=== PATIENT | female | born 1935 | race Caucasian/White ===

== ENCOUNTER 2022-07-26 12:13 | Emergency (ER) | payer MEDICARE, SELFPAY ==
--- NOTE | ~2022-07-26 | XR_ITS ---
EXAMINATION: XR ankle RT min 3V DATE: 07/26/2022 13:05 INDICATION: Right ankle injury. TECHNIQUE: 4 views of right ankle were obtained. COMPARISON: None. FINDINGS: There is an oblique fracture of medial malleolus in near-anatomic alignment. There is an ob lique fracture of distal fibula with medial aspect of the fracture line at the level of the tibial pl afond in near-anatomic alignment. There is heterotopic ossification distal to lateral malleolus. Ther e is an osteochondral lesion of lateral talar dome. There is mild midfoot osteoarthritis. There are e nthesophytes at the posterior and plantar aspects of calcaneal tuberosity. There is a wire were place d suture Achilles tendon. Ankle soft tissue swelling is noted. IMPRESSION: 1. Bimalleolar ankle fracture. 2. Polyarticular osteoarthritis. Reviewed, dictated and finalized at location A.
--- NOTE | 2022-07-26 12:25 | ED.LOWEXIN ---
HPI - Extremity Injury (Lower) General Chief Complaint: Extremity Injury, Lower Stated Complaint: Right Ankle Injury Source: patient, family and RN notes reviewed History of Present Illness HPI Narrative: 87-year-old male presents urgent care with at bedside. Patient is presenting with right lateral ankle pain, swelling, and bruising. Patient states last night she was sitting in her motorized scooter and did not realize it was on when it went forward hitting her ankle on the door frame. Patient denies any numbness, tingling, upper leg pain, chest pain, shortness of breath, or vomiting. Patient has taken Tylenol with minimal relief. Some parts of this dictation were generated by voice recognition software and may contain typographical and/or grammatical inaccuracies. Related Data Home Medications Medication Instructions Recorded Confirmed acetaminophen 500 mg tablet 500 mg PO Q6H PRN Pain 07/26/22 07/26/22 albuterol sulfate 90 mcg/actuation 2 puff inhalation QID PRN Cough 07/26/22 07/26/22 aerosol inhaler allopurinol 100 mg tablet 100 mg PO DAILY 07/26/22 07/26/22 apixaban 2.5 mg tablet (Eliquis) 2.5 mg PO BID 07/26/22 07/26/22 atorvastatin 10 mg tablet 10 mg PO DAILY 07/26/22 07/26/22 carvedilol 6.25 mg tablet 6.25 mg PO BID 07/26/22 07/26/22 clonazepam 1 mg tablet 1 mg PO DAILY 07/26/22 07/26/22 cranberry extract 200 mg capsule 200 mg PO DAILY 07/26/22 07/26/22 cyanocobalamin (vitamin B-12) 1,000 mcg PO DAILY 07/26/22 07/26/22 1,000 mcg tablet diclofenac sodium 1 % topical gel 2 g topical TID 07/26/22 07/26/22 duloxetine 20 mg capsule,delayed 20 mg PO BID 07/26/22 07/26/22 release famotidine 20 mg tablet 20 mg PO BID 07/26/22 07/26/22 fluticasone propionate 50 2 spray intranasal DAILY 07/26/22 07/26/22 mcg/actuation nasal spray,suspension furosemide 20 mg tablet 20 mg PO DAILY 07/26/22 07/26/22 ipratropium bromide 21 mcg (0.03 2 spray intranasal BID 07/26/22 07/26/22 %) nasal spray polyethylene glycol 3350 17 gram 17 g PO DAILY 07/26/22 07/26/22 oral powder packet Allergies Allergy/AdvReac Type Severity Reaction Status Date / Time latex Allergy Unknown Unknown Verified 07/26/22 12:45 adhesive AdvReac Intermediate Other Verified 07/26/22 12:44 oxycodone AdvReac Intermediate Nausea and Verified 07/26/22 12:45 Vomiting ramipril AdvReac Intermediate Other Verified 07/26/22 12:47 tetracycline AdvReac Intermediate Confusion Verified 07/26/22 12:43 Review of Systems Review of Systems: CONSTITUTIONAL: Denies fever, chills, or sweats. EYES: Denies visual changes, redness, or discharge. ENT: Denies otalgia and sore throat CARDIOVASCULAR: Denies chest pain, palpitations, or edema. RESPIRATORY: Denies cough or dyspnea. GASTROINTESTINAL: Denies abdominal pain, nausea, vomiting, or diarrhea. GENITOURINARY: Denies dysuria or hematuria. SKIN: Denies rash or itching. MUSCULOSKELETAL: Right lateral ankle pain NEUROLOGIC: Denies headache, numbness, or weakness. Pertinent positives per HPI. PMFSH Comments At the time of my signature, I reviewed and agree with the nursing past medical, surgical, social, and family history. There is no relevant family history pertinent to the patient complaint. Exam Narrative: GENERAL: This is a well-nourished, well-developed patient, in no apparent distress. HEAD: normocephalic, atraumatic. EYES:Sclera clear/white. Vision is grossly intact. EARS: External ears normal, auditory canals clear and without drainage. Hearing grossly intact. NOSE: External nose normal with no obvious nasal discharge, nares without redness, no rhinorrhea. THROAT: Mucous membranes moist, posterior pharynx clear. NECK: Neck supple, non-tender without lymphadenopathy, masses or thyromegaly. CARDIOVASCULAR: Regular rate RESPIRATORY: Clear to auscultation. Breath sounds equal bilaterally. No wheezes, rales, or rhonchi. GASTROINTESTINAL: Abdomen soft, non-tender, nondistended. Bowel sounds are act
[2022-07-26 12:28] VITALS: BP 140/64; PULSE 86; RESP 20; TEMP 37.1; O2SAT 100
== END 2022-07-26 14:10 | disposition short-term general hospital (02) ==
PROVIDERS: Emergency Provider Nurse Practitioner Family; PCP Internal Medicine Geriatric Medicine
DX: S82.841A Displaced bimalleolar fracture of right lower leg, initial encounter for closed fracture (principal); V00.832A Motorized mobility scooter colliding with stationary object, initial encounter; F03.90 Unspecified dementia, unspecified severity, without behavioral disturbance, psychotic disturbance, mood disturbance, and anxiety; M48.062 Spinal stenosis, lumbar region with neurogenic claudication; I48.91 Unspecified atrial fibrillation; E78.00 Pure hypercholesterolemia, unspecified; I10 Essential (primary) hypertension; K21.9 Gastro-esophageal reflux disease without esophagitis; M10.9 Gout, unspecified; E11.22 Type 2 diabetes mellitus with diabetic chronic kidney disease; I12.9 Hypertensive chronic kidney disease with stage 1 through stage 4 chronic kidney disease, or unspecified chronic kidney disease; N18.9 Chronic kidney disease, unspecified
CPT/HCPCS: 29515; 73610; 99214; G0463

== ENCOUNTER 2022-07-26 14:53 | Observation (INO) | payer MEDICARE, SELFPAY ==
[2022-07-26] VITALS (7 sets, daily range): BP systolic 121–175; BP diastolic 62–92; PULSE 84–99; RESP 16; TEMP 36.8–36.9; O2SAT 16–100
--- NOTE | ~2022-07-26 | US_ITS ---
EXAMINATION: US renal BI DATE: 07/28/2022 10:58 INDICATION: Acute on chronic kidney disease TECHNIQUE: Multiple ultrasound grayscale images of the kidneys were obtained. COMPARISON: None. FINDINGS: The right kidney measures 8.8 x 4.5 x 3.8 cm. The left kidney measures 9.3 x 4.0 x 3.8 cm. There is b ilateral increased renal cortical echogenicity which can be seen with medical renal disease. There is no hydronephrosis in either kidney. No stones identified. The bladder is incompletely distended and suboptimally visualized. IMPRESSION: 1. Bilateral increased renal cortical echogenicity which can be seen with chronic renal disease. No hydronephrosis. Reviewed, dictated and finalized at location A. IMPRESSION: 1. Bilateral increased renal cortical echogenicity which can be seen with investment strategist frances renal disease. No hydronephrosis.
--- NOTE | 2022-07-26 15:06 | ED.EXTPRO ---
HPI - Extremity Problem General Chief complaint: Extremity Problem,Nontraumatic <Nora Gomez PA-C - Last Filed: 07/26/22 17:19> Stated complaint: Tib/Fib FX <Nora Gomez PA-C - Last Filed: 07/26/22 17:19> Time Seen by Provider: 07/26/22 14:56 <Nora Gomez PA-C - Last Filed: 07/26/22 17:19> History of Present Illness HPI Narrative: 87-year-old female reports via EMS from urgent care for a bimalleolar fracture. Patient reports last night she was sitting in her motorized scooter and did not realize it was on, she went forward and hit her right ankle on the wall. She is complaining of inability to bear weight, right ankle pain and swelling and bruising. The urgent care provider spoke with Dr. Paulino who agreed to see the patient at [facility]. She lives at home in assisted living with her who is unable to care for her. Pt denies other complaints at this time. She normally ambulates with her scooter. <Nora Gomez PA-C - Last Filed: 07/26/22 17:19> Related Data Home medications: Home Medications Medication Instructions Recorded Confirmed acetaminophen 500 mg tablet 500 mg PO Q6H PRN Pain 07/26/22 07/29/22 albuterol sulfate 90 mcg/actuation 2 puff inhalation QID PRN Cough 07/26/22 07/29/22 aerosol inhaler allopurinol 100 mg tablet 100 mg PO DAILY 07/26/22 07/29/22 apixaban 2.5 mg tablet (Eliquis) 2.5 mg PO BID 07/26/22 07/29/22 atorvastatin 10 mg tablet 10 mg PO DAILY 07/26/22 07/29/22 carvedilol 6.25 mg tablet 6.25 mg PO BID 07/26/22 07/29/22 clonazepam 1 mg tablet 1 mg PO DAILY 07/26/22 07/29/22 cranberry extract 200 mg capsule 200 mg PO DAILY 07/26/22 07/29/22 cyanocobalamin (vitamin B-12) 1,000 mcg PO DAILY 07/26/22 07/29/22 1,000 mcg tablet diclofenac sodium 1 % topical gel 2 g topical TID 07/26/22 07/29/22 duloxetine 20 mg capsule,delayed 20 mg PO BID 07/26/22 07/29/22 release fluticasone propionate 50 2 spray intranasal DAILY 07/26/22 07/29/22 mcg/actuation nasal spray,suspension furosemide 20 mg tablet 20 mg PO DAILY 07/26/22 07/29/22 ipratropium bromide 21 mcg (0.03 2 spray intranasal BID 07/26/22 07/29/22 %) nasal spray <Nora Gomez PA-C - Last Filed: 07/26/22 17:19> Allergies/Adverse reactions: Allergies Allergy/AdvReac Type Severity Reaction Status Date / Time latex Allergy Unknown Unknown Verified 07/26/22 12:45 adhesive AdvReac Intermediate Other Verified 07/26/22 12:44 oxycodone AdvReac Intermediate Nausea and Verified 07/26/22 12:45 Vomiting ramipril AdvReac Intermediate Other Verified 07/26/22 12:47 tetracycline AdvReac Intermediate Confusion Verified 07/26/22 12:43 <Nora Gomez PA-C - Last Filed: 07/26/22 17:19> Review of Systems Review of Systems: CONSTITUTIONAL: Denies fever, chills EYES: Denies visual changes, redness, or discharge. ENT: Denies rhinorrhea, congestion, sore throat, or otalgia. CARDIOVASCULAR: Denies chest pain, palpitations, or edema. RESPIRATORY: Denies cough or dyspnea. GASTROINTESTINAL: Denies abdominal pain, nausea, vomiting, or diarrhea. GENITOURINARY: Denies dysuria or hematuria. SKIN: Denies rash or itching. MUSCULOSKELETAL: See HPI NEUROLOGIC: Denies headache, numbness, dizziness, or weakness. PSYCHIATRIC: Denies anxiety or depression. <Nora Gomez PA-C - Last Filed: 07/26/22 17:19> [facility] Past Medical History Medical History: Medical History Asthma Atrial fibrillation, chronic CKD (chronic kidney disease) CVA (cerebral vascular accident) x2 DM2 (diabetes mellitus, type 2) Gout Hyperlipidemia Hypertension Nondisplaced bimalleolar fracture of right ankle <Nora Gomez PA-C - Last Filed: 07/26/22 17:19> Surgical History Surgical History: Surgical History History of hysterectomy including cervix S/P extracapsular cataract extracti
[2022-07-26] MEDS: ACETAMINOPHEN 500 MG TABLET 1000 MG PO (17:13)
[2022-07-26 17:26] LABS: Basophils Percent Auto 0.4 % (0.2-1.2); Eosinophils Absolute Auto 0.1 K/mm3 (0-0.3); Eosinophils Percent Auto 0.9 % (0-4.4); Hematocrit 31.2 % (37.0-47.0); Hemoglobin 9.9 g/dL (12.0-15.0); Immature Granulocyte Absolute 0.02 K/mm3 (0.00-0.031); Immature Granulocyte Percent A 0.2 % (0-0.5); Lymphocytes Absolute Auto 1.79 K/mm3 (0.9-3.2); Lymphocytes Percent Auto 20.9 % (18.3-44.2); Mean Corpuscular HGB Conc 31.7 g/dl (32-36); Mean Corpuscular Hemoglobin 30.3 pg (26-34); Mean Corpuscular Volume 95.4 fl (80-100); Mean Platelet Volume 11.1 fl (7.4-10.4); Monocytes Absolute Auto 0.5 K/mm3 (0.1-0.6); Monocytes Percent Auto 5.5 % (2.6-8.5); Neutrophils Absolute Auto 6.2 K/mm3 (1.3-6.7); Neutrophils Percent Auto 72.1 % (45.5-73.1); Platelet Count Result 227 k/mm3 (150-375); Red Blood Count 3.27 M/mm3 (4.2-5.4); Red Cell Distribution Width 13.2 % (11.5-14.5); White Blood Count 8.6 K/mm3 (4.5-10.0)
[2022-07-26 17:41] LABS: Alanine Aminotransferase 12 U/L (6-35); Alkaline Phosphatase 114 U/L (38-126); Anion Gap 3 mmol/L (8-16); Aspartate Amino Transferase 19 U/L (14-36); Bilirubin,Total 0.9 mg/dL (0.2-1.3); Blood Urea Nitrogen 32 mg/dL (7-17); Calcium 10.4 mg/dL (8.4-10.2); Carbon Dioxide 32 mmol/L (22-30); Chloride 103 mmol/L (98-107); Estimated CRCL calculation 25 ml/min; Estimated Glomerular Filt Rate 43; Glucose 133 mg/dL (65-110); Sodium 138 mmol/L (137-145)
--- NOTE | 2022-07-26 19:38 | PM.IMHP ---
H&P: HPI History of Present Illness Date/Time: 07/26/22 19:38 Chief Complaint: Tib-fib fracture Narrative: This is an 87-year-old female patient who lives at home with her . The patient was brought here via EMS from urgent care for by malleolar fracture. The patient was sitting in her motorized scooter and did realize that was on she went forward hit her ankle on the wall. She was complaining about inability to bear weight. She was having some right ankle pain swelling and bruising. The urgent care provider spoke with Dr. Paulino who agreed to see the patient at [facility]. The patient stated that her would not be able to take care of her. The patient normally uses a scooter for mobility. When I assessed the patient she had a cast to the right lower extremity. H&H is 9.9 and 31.2. Her BUN is 32 and creatinine is 1.2. No previous labs for comparison. Her glucose is 133. Right ankle x-ray was read as by malleolar ankle fracture. Polyarticular osteoarthritis. The patient was given Tylenol in the emergency room. The patient is being admitted to observation status on the date of service of 07/26/2022. Review of Systems Review of Systems: All systems reviewed & are unremarkable except as noted in HPI and below Constitutional: Constitutional: Reports as per HPI and Reports no additional constitutional complaints Eyes: Eyes: Reports as per HPI and Reports no additional eye complaints ENT: Reports system reviewed and no additional complaints, except as documented and Reports Normal hearing present Cardiovascular: Cardiovascular: Reports no additional cardiovascular complaints Respiratory: Respiratory: Reports no additional respiratory complaints and Reports no additional respiratory complaints Gastrointestinal: Gastrointestinal: Reports as per HPI and Reports no additional gastrointestinal complaints Musculoskeletal: Musculoskeletal: Reports no additional musculoskeletal complaints Integumentary/Breasts: Skin/Breast: Reports system reviewed and no additional complaints, except as docu and Reports as per HPI Neurologic: Reports system reviewed and no additional complaints, except as documented, Reports as per HPI and Reports Normal hearing present Psychiatric: Psychiatric: Reports no additional psychiatric complaints and Reports as per HPI Endocrine: Endocrine: Reports no additional endocrine complaints Hematologic/Lymphatic: Hematologic/Lymphatic: Reports no additional hematologic/lymphatic complaints Allergic/Immunologic: Allergic/Immunologic: Reports no additional allergic/immunologic complaints [facility] Past Medical History Medical History (Updated 07/27/22 @ 00:08 by Heather Smith NP) Asthma Atrial fibrillation, chronic CKD (chronic kidney disease) CVA (cerebral vascular accident) x2 DM2 (diabetes mellitus, type 2) Gout Hyperlipidemia Hypertension Surgical History Surgical History History of hysterectomy including cervix S/P extracapsular cataract extraction Total knee replacement status right Family History Family History Mother Hypertension Daughter Breast cancer Social History Social History (Updated 07/27/22 @ 00:01 by Heather Smith NP) Social History: She lives with in an assisted living. She had one daughter that . She retired from [employer] in the [place] office. Code status full code Smoking status: Never smoker Lack of Transportation: No Lack of Food: Never True Current Housing: I Have Housing Concerned About Future Housing: No Difficulty Paying Gas/Electric Bills: No Difficulty Paying for Meds: No Currently Unemployed: No Education: Associate Degree Difficulty w/ Childcare or Family Care: No Spiritual care concerns: No Comments [place] Meds Home Medications and Allergies Home Medicat
--- NOTE | 2022-07-26 20:57 | ADMGEN ---
This patient, Leonie Casper, was admitted to [address] [place] [address] Room 305-02. Patient/family oriented to hospital policies and general routines including ID bracelet, bed and alarms, visiting hours, pain management, procedures, bathroom and other care routines, personal items, smoking policy, room service/diet, and visiting hours. Information on how to activate the Rapid Response Team has been discussed. Patient/Family are encouraged to report perceived risks to care and to ask questions if they do not understand what they are told or what they should do.
[2022-07-27] VITALS (7 sets, daily range): BP systolic 133–145; BP diastolic 52–54; PULSE 87–96; RESP 14–16; TEMP 35.9–36.8; O2SAT 96–98
[2022-07-27 06:35] LABS: Basophils Percent Auto 0.4 % (0.2-1.2); Eosinophils Absolute Auto 0.1 K/mm3 (0-0.3); Eosinophils Percent Auto 1.2 % (0-4.4); Hematocrit 28.3 % (37.0-47.0); Hemoglobin 8.8 g/dL (12.0-15.0); Immature Granulocyte Absolute 0.03 K/mm3 (0.00-0.031); Immature Granulocyte Percent A 0.4 % (0-0.5); Lymphocytes Absolute Auto 1.76 K/mm3 (0.9-3.2); Lymphocytes Percent Auto 24.3 % (18.3-44.2); Mean Corpuscular HGB Conc 31.1 g/dl (32-36); Mean Corpuscular Hemoglobin 30.4 pg (26-34); Mean Corpuscular Volume 97.9 fl (80-100); Monocytes Absolute Auto 0.6 K/mm3 (0.1-0.6); Monocytes Percent Auto 7.9 % (2.6-8.5); Neutrophils Absolute Auto 4.8 K/mm3 (1.3-6.7); Neutrophils Percent Auto 65.8 % (45.5-73.1); Platelet Count Result 210 k/mm3 (150-375); Red Blood Count 2.89 M/mm3 (4.2-5.4); Red Cell Distribution Width 13.3 % (11.5-14.5); White Blood Count 7.2 K/mm3 (4.5-10.0)
[2022-07-27 06:46] LABS: Lactic Acid Reflex 0.6 mmol/L (0.7-2.0)
[2022-07-27 06:47] LABS: Alanine Aminotransferase 11 U/L (6-35); Albumin Level 3.4 g/dL (3.5-5.1); Alkaline Phosphatase 98 U/L (38-126); Anion Gap 3 mmol/L (8-16); Aspartate Amino Transferase 17 U/L (14-36); Bilirubin,Total 0.7 mg/dL (0.2-1.3); Blood Urea Nitrogen 33 mg/dL (7-17); Calcium 9.4 mg/dL (8.4-10.2); Carbon Dioxide 33 mmol/L (22-30); Chloride 104 mmol/L (98-107); Estimated CRCL calculation 22 ml/min; Estimated Glomerular Filt Rate 36; Glucose 168 mg/dL (65-110); Magnesium 1.8 mg/dL (1.6-2.3); Sodium 140 mmol/L (137-145)
[2022-07-27 06:51] LABS: Hemoglobin A1C 6.2 % (<5.7)
--- NOTE | 2022-07-27 07:15 | PCOTNOTE ---
Will complete OT evaluation following ortho consult and WB restriction recommendations.
[2022-07-27 07:48] LABS: Glucose Point of Care 142 mg/dl (65-105)
[2022-07-27] MEDS: ATORVASTATIN 10 MG TABLET PO (09:26)
[2022-07-27] MEDS: CYANOCOBALAMIN 1,000 MCG TABLET 1000 MCG PO (09:26)
[2022-07-27] MEDS: allopurinoL 100 MG TABLET PO (09:26)
[2022-07-27] MEDS: DULoxetine HCL 20 MG CAPSULE.DR PO ×2 (09:26→17:29)
[2022-07-27] MEDS: APIXABAN 2.5 MG TABLET PO ×2 (09:26→17:28)
[2022-07-27] MEDS: FUROSEMIDE 20 MG TABLET PO (09:26)
[2022-07-27] MEDS: carvediloL 6.25 MG TABLET PO ×2 (09:29→20:40)
[2022-07-27] MEDS: FLUTICASONE PROPIONATE 0.05% NA SPR 16 GM BTL (*BKC) 2 SPRAY NASAL (09:30)
[2022-07-27] MEDS: DICLOFENAC SODIUM 1% 100 GM GEL (*BKC) 1 APPLIC TOPICAL ×3 (09:31→17:39)
[2022-07-27] MEDS: clonazePAM (*CRX) 0.5 MG TABLET 1 MG PO (09:35)
--- NOTE | 2022-07-27 09:44 | PM.CNOR ---
Assessment and Plan Assessment and plan (1) Nondisplaced bimalleolar fracture of right ankle: Code(s): S82.844A - Nondisplaced bimalleolar fracture of right lower leg, initial encounter for closed fracture Status: Acute Plan 87-year-old female who is essentially nonambulatory. She has a nondisplaced right bimalleolar ankle fracture. This can be treated with a stirrup splint which will allow her to wear a shoe and transfer. Would be good to assess her for possible rehab. I will need to see her in the office in one month for follow-up x-rays of the right ankle. History of Present Illness HPI Consult date: 07/27/22 Chief complaint: Bimalleolar Fracture Narrative: 87-year-old female who is essentially scooter bound. She ran her scooter into a wall yesterday suffering a bimalleolar right ankle fracture which is nondisplaced. She was splinted and admitted for possible placement and therapy. No other injuries with this occurrence. Review of Systems Constitutional: Constitutional: Denies anorexia Eyes: Eyes: Denies irritation and Denies loss of vision ENT: Reports Normal hearing present Cardiovascular: Cardiovascular: Denies chest pain and Denies dyspnea on exertion Respiratory: Respiratory: Denies cough and Denies dyspnea on exertion Gastrointestinal: Gastrointestinal: Denies abdominal pain and Denies bloating Genitourinary: Genitourinary: Denies dysuria Musculoskeletal: Musculoskeletal: Reports arthralgias ( Knee arthritis) Integumentary/Breasts: Skin/Breast: Denies skin ulcer Neurologic: Reports Normal hearing present and Denies loss of vision Hematologic/Lymphatic: Hematologic/Lymphatic: Denies easy bleeding PMF Past Medical History Medical History (Updated 07/27/22 @ 09:48 by Arian Paulino MD) Asthma Atrial fibrillation, chronic CKD (chronic kidney disease) CVA (cerebral vascular accident) x2 DM2 (diabetes mellitus, type 2) Gout Hyperlipidemia Hypertension Nondisplaced bimalleolar fracture of right ankle Surgical History Surgical History History of hysterectomy including cervix S/P extracapsular cataract extraction Total knee replacement status right Family History Family History Mother Hypertension Daughter Breast cancer Social History Social History Social History: She lives with in an assisted living. She had one daughter that . She retired from [employer] in the [employer] office. Code status full code Smoking status: Never smoker Lack of Transportation: No Lack of Food: Never True Current Housing: I Have Housing Concerned About Future Housing: No Difficulty Paying Gas/Electric Bills: No Difficulty Paying for Meds: No Currently Unemployed: No Education: Associate Degree Difficulty w/ Childcare or Family Care: No Spiritual care concerns: No Meds Home Medications and Allergies Home Medications Medication Instructions Recorded Confirmed Type acetaminophen 500 mg tablet 500 mg PO Q6H PRN Pain 07/26/22 07/26/22 History albuterol sulfate 90 mcg/actuation 2 puff inhalation QID PRN Cough 07/26/22 07/26/22 History aerosol inhaler allopurinol 100 mg tablet 100 mg PO DAILY 07/26/22 07/26/22 History apixaban 2.5 mg tablet (Eliquis) 2.5 mg PO BID 07/26/22 07/26/22 History atorvastatin 10 mg tablet 10 mg PO DAILY 07/26/22 07/26/22 History carvedilol 6.25 mg tablet 6.25 mg PO BID 07/26/22 07/26/22 History clonazepam 1 mg tablet 1 mg PO DAILY 07/26/22 07/26/22 History cranberry extract 200 mg capsule 200 mg PO DAILY 07/26/22 07/26/22 History cyanocobalamin (vitamin B-12) 1,000 mcg PO DAILY 07/26/22 07/26/22 History 1,000 mcg tablet diclofenac sodium 1 % topical gel 2 g topical TID 07/26/22 07/26/22 History duloxetine 20 mg capsule,delayed 20 mg PO B
[2022-07-27] MEDS: IPRATROPIUM NASAL SPRAY 0.03% 15 ML BOTTLE 2 SPRAY NASAL ×2 (10:00→17:31)
[2022-07-27 11:21] LABS: Glucose Point of Care 354 mg/dl (65-105)
--- NOTE | 2022-07-27 11:30 | P.PNIM_ITS ---
Progress Note: A&P Assessment and Plan (1) Bimalleolar ankle fracture: Qualifiers: Encounter type: initial encounter Fracture type: closed Laterality: right Qualified Code(s): S82.841A - Displaced bimalleolar fracture of right lower leg, initial encounter for closed fracture Code(s): S82.843A - Displaced bimalleolar fracture of unspecified lower leg, initial encounter for closed fracture Status: Deleted Assessment and Plan: * ankle x-ray shows bimalleolar ankle fracture * orthopedics consulted * ankle is currently casted * PT and OT ordered * weight-bearing as tolerated * Tylenol on board for pain * will need rehab currently working on [facility] (2) DM2 (diabetes mellitus, type 2): Code(s): E11.9 - Type 2 diabetes mellitus without complications Status: Acute Assessment and Plan: * current glucose 168 * A1c 6.2 * continue Accu-Cheks AC and HS * insulin sliding scale * appears to be diet controlled * continue trend glucose * adjust therapy as indicated (3) Atrial fibrillation, chronic: Code(s): I48.20 - Chronic atrial fibrillation, unspecified Status: Acute Assessment and Plan: * heart rate stable * Continue with Coreg and Eliquis. * Trend heart rate (4) Asthma: Code(s): J45.909 - Unspecified asthma, uncomplicated Status: Acute Assessment and Plan: * Continue with albuterol * chronic and stable (5) Hypertension: Code(s): I10 - Essential (primary) hypertension Status: Acute Assessment and Plan: * current blood pressure 145/54 * continue carvedilol 6.25 p.o. b.i.d., furosemide 20 mg p.o. daily * trend blood pressure * adjust therapy as indicated (6) CKD (chronic kidney disease): Code(s): N18.9 - Chronic kidney disease, unspecified Status: Acute Assessment and Plan: * current BUN and creatinine is 33/1.40 * could very well be an acute on chronic situation * baseline is unknown * start her on normal saline at 50 for really light hydration, x 1 bag * watch fluid status carefully as there could be a component of CHF * trend labs * urine labs ordered along with UA * adjust therapy as indicated * avoid nephrotoxic medications (7) Hyperlipidemia: Code(s): E78.5 - Hyperlipidemia, unspecified Status: Acute Assessment and Plan: * Continue with atorvastatin Plan patient does have a very strong urine odor could be more likely related to UTI awaiting UA collection at this time wheeled off on antibiotics until UA is collected Time Spent With Patient Time: 53 minutes Time with patient: Greater than 35 minutes Subjective Date/time seen: 07/27/22 11:30 Interval history: 07/27/22 1130 patient is lying in bed. Patient states that her foot hurts and rates it a 7/10. She currently denies any other chest pain, shortness a breath, nausea, vomiting, diarrhea constipation. Patient does have a pretty significant urinary leak. Awaiting for UA to be collected this time. Currently the plan is for the patient to go to [place] for rehab. 07/26/22? 19:38 This is an 87-year-old female patient who l
--- NOTE | 2022-07-27 11:30 | PM.IMPN ---
Progress Note: A&P Assessment and Plan (1) Bimalleolar ankle fracture: Qualifiers: Encounter type: initial encounter Fracture type: closed Laterality: right Qualified Code(s): S82.841A - Displaced bimalleolar fracture of right lower leg, initial encounter for closed fracture Code(s): S82.843A - Displaced bimalleolar fracture of unspecified lower leg, initial encounter for closed fracture Status: Deleted Assessment and Plan: ankle x-ray shows bimalleolar ankle fracture orthopedics consulted ankle is currently casted PT and OT ordered weight-bearing as tolerated Tylenol on board for pain will need rehab currently working on [employer] (2) DM2 (diabetes mellitus, type 2): Code(s): E11.9 - Type 2 diabetes mellitus without complications Status: Acute Assessment and Plan: current glucose 168 A1c 6.2 continue Accu-Cheks AC and HS insulin sliding scale appears to be diet controlled continue trend glucose adjust therapy as indicated (3) Atrial fibrillation, chronic: Code(s): I48.20 - Chronic atrial fibrillation, unspecified Status: Acute Assessment and Plan: heart rate stable Continue with Coreg and Eliquis. Trend heart rate (4) Asthma: Code(s): J45.909 - Unspecified asthma, uncomplicated Status: Acute Assessment and Plan: Continue with albuterol chronic and stable (5) Hypertension: Code(s): I10 - Essential (primary) hypertension Status: Acute Assessment and Plan: current blood pressure 145/54 continue carvedilol 6.25 p.o. b.i.d., furosemide 20 mg p.o. daily trend blood pressure adjust therapy as indicated (6) CKD (chronic kidney disease): Code(s): N18.9 - Chronic kidney disease, unspecified Status: Acute Assessment and Plan: current BUN and creatinine is 33/1.40 could very well be an acute on chronic situation baseline is unknown start her on normal saline at 50 for really light hydration, x 1 bag watch fluid status carefully as there could be a component of CHF trend labs urine labs ordered along with UA adjust therapy as indicated avoid nephrotoxic medications (7) Hyperlipidemia: Code(s): E78.5 - Hyperlipidemia, unspecified Status: Acute Assessment and Plan: Continue with atorvastatin Plan patient does have a very strong urine odor could be more likely related to UTI awaiting UA collection at this time wheeled off on antibiotics until UA is collected Time Spent With Patient Time: 53 minutes Time with patient: Greater than 35 minutes Subjective Date/time seen: 07/27/22 11:30 Interval history: 07/27/22 1130 patient is lying in bed. Patient states that her foot hurts and rates it a 7/10. She currently denies any other chest pain, shortness a breath, nausea, vomiting, diarrhea constipation. Patient does have a pretty significant urinary leak. Awaiting for UA to be collected this time. Currently the plan is for the patient to go to [place] for rehab. 07/26/22? 19:38 This is an 87-year-old female patient who lives at home with her .? The patient was brought here via EMS from urgent care for by malleolar fracture.? The patient was sitting in her motorized scooter and did realize that was on she went forward hit her ankle on the wall.? She was complaining about inability to bear weight.? She was having some right ankle pain swelling and bruising.? The urgent care provider spoke with Dr. Paulino who agreed to see the patient at [facility].? The patient stated that her would not be able to take care of her.? The patient normally uses a scooter for mobility.? When I assessed the patient she had a cast to the right lower extremity.? H&H is 9.9 and 31.2.? Her BUN is 32
[2022-07-27] MEDS: SODIUM CHLORIDE 0.9% IV 1,000 ML 50 ML IV CONT (13:10)
[2022-07-27 16:55] LABS: Glucose Point of Care 181 mg/dl (65-105)
[2022-07-27] MEDS: ACETAMINOPHEN 325 MG TABLET 650 MG PO (17:26)
[2022-07-27] MEDS: SILVERGEL (ELTA) 45 ML 1 APPLIC TOPICAL (17:30)
[2022-07-27 22:08] LABS: Glucose Point of Care 227 mg/dl (65-105)
[2022-07-28 05:59] LABS: Basophils Percent Auto 0.3 % (0.2-1.2); Eosinophils Absolute Auto 0.1 K/mm3 (0-0.3); Hematocrit 27.4 % (37.0-47.0); Hemoglobin 8.5 g/dL (12.0-15.0); Immature Granulocyte Absolute 0.02 K/mm3 (0.00-0.031); Immature Granulocyte Percent A 0.3 % (0-0.5); Lymphocytes Absolute Auto 2.06 K/mm3 (0.9-3.2); Lymphocytes Percent Auto 28.9 % (18.3-44.2); Mean Corpuscular Hemoglobin 30.1 pg (26-34); Mean Corpuscular Volume 97.2 fl (80-100); Mean Platelet Volume 10.8 fl (7.4-10.4); Monocytes Absolute Auto 0.6 K/mm3 (0.1-0.6); Monocytes Percent Auto 8.7 % (2.6-8.5); Neutrophils Absolute Auto 4.3 K/mm3 (1.3-6.7); Neutrophils Percent Auto 59.8 % (45.5-73.1); Platelet Count Result 204 k/mm3 (150-375); Red Blood Count 2.82 M/mm3 (4.2-5.4); Red Cell Distribution Width 13.1 % (11.5-14.5); White Blood Count 7.1 K/mm3 (4.5-10.0)
[2022-07-28 06:00] VITALS: BP 114/53; PULSE 85; RESP 20; TEMP 35.9; O2SAT 96
[2022-07-28 06:09] LABS: Alanine Aminotransferase 10 U/L (6-35); Albumin Level 3.3 g/dL (3.5-5.1); Alkaline Phosphatase 92 U/L (38-126); Anion Gap 4 mmol/L (8-16); Aspartate Amino Transferase 18 U/L (14-36); Bilirubin,Total 0.8 mg/dL (0.2-1.3); Blood Urea Nitrogen 32 mg/dL (7-17); Calcium 9.1 mg/dL (8.4-10.2); Carbon Dioxide 31 mmol/L (22-30); Chloride 101 mmol/L (98-107); Creatine Kinase 37 U/L (30-135); Estimated CRCL calculation 22 ml/min; Estimated Glomerular Filt Rate 36; Glucose 162 mg/dL (65-110); Magnesium 1.7 mg/dL (1.6-2.3); Sodium 136 mmol/L (137-145)
[2022-07-28 06:12] LABS: Iron 11 ug/dL (37-170)
[2022-07-28 06:17] LABS: Transferrin 152 mg/dL (206-381)
[2022-07-28 06:21] LABS: Percent Iron Saturation 5 % (20-50)
[2022-07-28 07:22] LABS: Folic Acid 14.9 ng/mL (2.76->20)
[2022-07-28 07:51] LABS: Glucose Point of Care 165 mg/dl (65-105)
[2022-07-28] MEDS: CYANOCOBALAMIN 1,000 MCG TABLET 1000 MCG PO (08:45)
[2022-07-28] MEDS: allopurinoL 100 MG TABLET PO (08:46)
[2022-07-28] MEDS: APIXABAN 2.5 MG TABLET PO ×2 (08:46→17:15)
[2022-07-28] MEDS: FUROSEMIDE 20 MG TABLET PO (08:46)
[2022-07-28] MEDS: DULoxetine HCL 20 MG CAPSULE.DR PO ×2 (08:46→17:15)
[2022-07-28] MEDS: ATORVASTATIN 10 MG TABLET PO (08:46)
[2022-07-28] MEDS: FLUTICASONE PROPIONATE 0.05% NA SPR 16 GM BTL (*BKC) 2 SPRAY NASAL (08:47)
[2022-07-28 08:49] VITALS: PULSE 83
[2022-07-28] MEDS: carvediloL 6.25 MG TABLET PO ×2 (08:49→21:06)
[2022-07-28] MEDS: clonazePAM (*CRX) 0.5 MG TABLET 1 MG PO (08:50)
[2022-07-28] MEDS: IPRATROPIUM NASAL SPRAY 0.03% 15 ML BOTTLE 2 SPRAY NASAL ×2 (08:51→17:16)
[2022-07-28] MEDS: DICLOFENAC SODIUM 1% 100 GM GEL (*BKC) 1 APPLIC TOPICAL ×3 (08:54→17:18)
[2022-07-28] MEDS: MAGNESIUM SULF 2 GM/WATER 50ML 2 GM/50 ML BAG IVPB (11:18)
[2022-07-28] MEDS: SILVERGEL (ELTA) 45 ML 1 APPLIC TOPICAL (11:19)
--- NOTE | 2022-07-28 11:41 | PM.PNORT ---
Progress Note: A&P Assessment and Plan (1) Nondisplaced bimalleolar fracture of right ankle: Qualifiers: Encounter type: subsequent encounter Fracture type: closed Fracture healing: with routine healing Qualified Code(s): S82.844D - Nondisplaced bimalleolar fracture of right lower leg, subsequent encounter for closed fracture with routine healing Code(s): S82.844A - Nondisplaced bimalleolar fracture of right lower leg, initial encounter for closed fracture Status: Acute Assessment and Plan: Plan follow-up in the office in one month for x-ray of the right ankle. Continue brace use full-time except for while bathing. Following. Subjective Subjective Date/Time Seen: 07/28/22 11:41 Interval history: 87-year-old female with essentially nondisplaced right bimalleolar ankle fracture. Has stirrup brace on and is tolerating it. Exam Narrative: Examination of the right ankle shows a well-fitting stirrup splint. Neurovascular status intact. Minimal swelling right ankle. Const: General: cooperative Objective Data Vital Signs Vital Signs: Vital Signs - 24 hr 07/27/22 14:00 07/27/22 14:27 07/27/22 17:26 Temperature 97.2 F L 98.2 F Pulse Rate 87 Respiratory Rate 16 Blood Pressure 133/54 L Pulse Oximetry 97 Oxygen Delivery Room Air 07/27/22 20:00 07/27/22 22:00 07/27/22 23:05 Temperature 96.6 F L Pulse Rate 87 90 89 Respiratory Rate 16 14 Blood Pressure 134/52 L Pulse Oximetry 97 96 96 Oxygen Delivery Room Air [employer] 07/28/22 06:00 07/28/22 07:55 07/28/22 08:49 Temperature 96.7 F L Pulse Rate 85 83 Respiratory Rate 20 Blood Pressure 114/53 L Pulse Oximetry 96 Oxygen Delivery Room Air 07/28/22 09:00 Temperature Pulse Rate Respiratory Rate Blood Pressure Pulse Oximetry Oxygen Delivery Room Air Intake/Output Intake/Output: Intake & Output 07/25/22 07/26/22 07/27/22 07/28/22 23:59 23:59 23:59 23:59 Intake Total 1734 / 1734 170 / 170 Output Total 300 / 300 Balance 1734 / 1734 -130 / -130 Meds/Results Medications: Active Medications Generic Name Dose Route Start Last Admin Trade Name Freq PRN Reason Stop Dose Admin Acetaminophen 650 mg 07/26/22 16:42 07/27/22 17:26 Acetaminophen 325 Mg Tablet PO 650 mg Q4H PRN Administration Mild Pain (1-3) or Fever Albuterol 2 puff 07/26/22 23:55 Albuterol Sulfate (*Sp) Aerosol 1 Puff INHALATION QID PRN Shortness Of Breath Allopurinol 100 mg 07/27/22 09:00 07/28/22 08:46 Allopurinol 100 Mg Tablet PO 100 mg DAILY CARMENCITA Administration Apixaban 2.5 mg 07/27/22 09:00 07/28/22 08:46 Apixaban 2.5 Mg Tablet PO 2.5 mg BID CARMENCITA Administration Atorvastatin Calcium 10 mg 07/27/22 09:00 07/28/22 08:46 Atorvastatin 10 Mg Tablet PO 10 mg DAILY CARMENCITA Administration Carvedilol 6.25 mg 07/27/22 09:00 07/28/22 08:49 Carvedilol 6.25 Mg Tablet PO 6.25 mg Q12HR CARMENCITA Administration Clonazepam 1 mg 07/27/22 09:00 07/28/22 08:50 Clonazepam (*Crx) 0.5 Mg Tablet PO 1 mg DAILY CARMENCITA Administration Cyanocobalamin 1,000 mcg 07/27/22 09:00 07/28/22 08:45 Cyanocobalamin 1,000 Mcg Tablet PO 1,000 mcg DAILY CARMENCITA Administration Dextrose 12.5 gm 07/27/22 00:05 Dextrose 50% 25 Gm/50 Ml Syringe IV PUSH PRN PRN Hypoglycemia Protocol Diclofenac Sodium 1 applic 07/27/22 09:00 07/28/22 08:54 Diclofenac Sodium 1% 100 Gm Gel (*Bkc) TOPICAL 1 applic TID CARMENCITA Administration Duloxetine HCl 20 mg 07/27/22 09:00 07/28/22 08:46 Duloxetine Hcl 20 Mg Capsule.Dr PO 20 mg BID CARMENCITA Administration Fluticasone Propionate 2 spray 07/27/22 09:00 07/28/22 08:47 Fluticasone Propionate 0.05% Na Spr 16 Gm Btl (*Bkc) NASAL 2 spray DAILY CARMENCITA Administration Furosemide 20 mg 07/27/22 09:00 07/28/22 08:46 Furosemide 20 Mg Tablet PO 20 mg DAILY CARMENCITA Administration Glucagon
[2022-07-28 12:24] LABS: Glucose Point of Care 301 mg/dl (65-105)
[2022-07-28 12:52] LABS: Creatinine Urine 44.2 mg/dL; Urea Random Urine 280 MG/DL
[2022-07-28 12:58] LABS: Sodium Urine Random 115 meq/L
[2022-07-28] MEDS: INSULIN ASPART (*BKC) 100 UNITS/ML SUB-Q (12:59)
[2022-07-28 13:13] LABS: Appearance Urine Cloudy (Clear); Bacteria Urine 4+ /hpf; Bilirubin Urine Negative (Negative); Blood Urine Negative (Negative); Color Urine Yellow (Yellow); Glucose Urine UA Trace mg/dL (Negative); Hyaline Casts Urine Present /lpf; Ketones Urine Negative (Negative); Leukocyte Esterase Ur 2+ LEU/UL (Negative); Nitrate Urine Positive (Negative); Protein Urine Negative (Negative); Squamous Epithelial Cell Urine None seen /hpf (Few); Urobilinogen Urine 0.2 mg/dL (<2.0); WBC Urine 21-50 /hpf
[2022-07-28 13:15] LABS: Add Urine Microscopic? YES
[2022-07-28 14:00] VITALS: BP 127/50; PULSE 89; RESP 16; TEMP 36.1; O2SAT 96
--- NOTE | 2022-07-28 14:52 | PM.IMPN ---
Progress Note: A&P Assessment and Plan (1) Bimalleolar ankle fracture: Qualifiers: Encounter type: initial encounter Fracture type: closed Laterality: right Qualified Code(s): S82.841A - Displaced bimalleolar fracture of right lower leg, initial encounter for closed fracture Code(s): S82.843A - Displaced bimalleolar fracture of unspecified lower leg, initial encounter for closed fracture Status: Deleted Assessment and Plan: Patient hit her right ankle against the wall in her motor scooter. Right ankle x-ray revealed bimalleolar ankle fracture Appreciate orthopedic surgery recommendations Conservative management with stirrup splint Will likely need rehab placement Outpatient Orthopedic fo Follow-up for repeat imaging in 1 month Appreciate PT/OT evals Continue supportive care (2) DM2 (diabetes mellitus, type 2): Code(s): E11.9 - Type 2 diabetes mellitus without complications Status: Acute Assessment and Plan: A1c is 6.2 Blood sugars remain reasonably controlled Continue Accu-Cheks, sliding scale insulin, and hypoglycemic protocol Monitor glucose trends (3) Atrial fibrillation, chronic: Code(s): I48.20 - Chronic atrial fibrillation, unspecified Status: Acute Assessment and Plan: Rate is controlled Continue home carvedilol and Eliquis (4) Hypertension: Code(s): I10 - Essential (primary) hypertension Status: Acute Assessment and Plan: Blood pressure is stable. Last BP 127/50 Continue home carvedilol 6.25 mg b.i.d. Monitor BP trends (5) CKD (chronic kidney disease): Code(s): N18.9 - Chronic kidney disease, unspecified Status: Acute Assessment and Plan: No prior labs available to establish baseline Creatinine is 1.4 at this time Renal ultrasound showed bilateral increased renal cortical echogenicity which is seen with chronic renal disease. No evidence of hydronephrosis Suspect patient is at her baseline. Monitor labs (6) Abnormal urinalysis: Code(s): R82.90 - Unspecified abnormal findings in urine Status: Acute Assessment and Plan: UA is abnormal with positive nitrates, 2+ leuk esterase, 21-50 WBC and 4+ bacteria Patient denies urinary symptoms at this time, is afebrile, no leukocytosis Will hold off on antibiotics while awaiting culture results Plan Magnesium has been supplemented Subjective Date/time seen: 04/26/23 14:52 Interval history: Date of service: 07/28/2022 Leonie Casper is an 87-year-old female with a history of atrial fibrillation on chronic anticoagulation, CKD, CVA, type 2 diabetes mellitus, hypertension who is seen in follow-up for left ankle fracture. She endorses 7/10 right ankle pain as well as pain with weight-bearing. She was able to get up with therapy today. She states that she hurts alll over. She denies shortness of breath, cough, or chest pain. Reports having a bowel movement today. She denies dysuria or hematuria. She is incontinent of urine. Review of Systems Review of Systems: All systems reviewed & are unremarkable except as noted in HPI and below Exam Narrative: General: Thin, chronically ill-appearing 87-year-old female, sitting up in bed, comfortable, NARD Neuro: awake, alert and oriented x4, speech clear, no focal neuro deficits noted HEENMT: normocephalic, atraumatic, EOMI, sclerae anicteric, hard of hearing Respiratory: clear to auscultation bilaterally, nonlabored breathing Cardio: regular rate, regular rhythm with S1-S2 Abdomen: nondistended, normoactive bowel sounds, soft, nontender to palpation Extremities: Right ankle elevated, bilateral lower extremities without edema, erythema, or tenderness to palpation, able to wiggle toes bilaterally Skin: no rashes or lesions, warm and dry Psych: appropriate mood and affect, judgment and insight intact Objective Data Vital Signs Vital Si
[2022-07-28 16:55] LABS: Glucose Point of Care 111 mg/dl (65-105)
[2022-07-28 20:00] VITALS: PULSE 89; RESP 16; O2SAT 96
[2022-07-28 22:00] VITALS: BP 138/64; PULSE 89; RESP 20; TEMP 36.3; O2SAT 98
[2022-07-28 22:57] LABS: Glucose Point of Care 182 mg/dl (65-105)
[2022-07-29 06:00] VITALS: BP 137/65; PULSE 88; RESP 17; TEMP 35.9; O2SAT 93
[2022-07-29 06:16] LABS: Hematocrit 28.1 % (37.0-47.0); Mean Corpuscular Hemoglobin 30.9 pg (26-34); Mean Corpuscular Volume 96.6 fl (80-100); Mean Platelet Volume 11.1 fl (7.4-10.4); Platelet Count Result 238 k/mm3 (150-375); Red Blood Count 2.91 M/mm3 (4.2-5.4); Red Cell Distribution Width 12.9 % (11.5-14.5); White Blood Count 7.7 K/mm3 (4.5-10.0)
[2022-07-29 06:30] LABS: Anion Gap 5 mmol/L (8-16); Blood Urea Nitrogen 33 mg/dL (7-17); Calcium 9.4 mg/dL (8.4-10.2); Carbon Dioxide 29 mmol/L (22-30); Chloride 101 mmol/L (98-107); Estimated CRCL calculation 20 ml/min; Estimated Glomerular Filt Rate 33; Glucose 158 mg/dL (65-110); Magnesium 1.8 mg/dL (1.6-2.3); Potassium 4.2 mmol/L (3.4-5.0); Sodium 135 mmol/L (137-145)
[2022-07-29 07:41] LABS: Glucose Point of Care 149 mg/dl (65-105)
[2022-07-29] MEDS: clonazePAM (*CRX) 0.5 MG TABLET 1 MG PO (08:06)
[2022-07-29] MEDS: allopurinoL 100 MG TABLET PO (08:07)
[2022-07-29] MEDS: APIXABAN 2.5 MG TABLET PO (08:07)
[2022-07-29] MEDS: ATORVASTATIN 10 MG TABLET PO (08:07)
[2022-07-29] MEDS: CYANOCOBALAMIN 1,000 MCG TABLET 1000 MCG PO (08:07)
[2022-07-29 08:08] VITALS: PULSE 91
[2022-07-29] MEDS: carvediloL 6.25 MG TABLET PO (08:08)
[2022-07-29] MEDS: DULoxetine HCL 20 MG CAPSULE.DR PO (08:08)
[2022-07-29] MEDS: FUROSEMIDE 20 MG TABLET PO (08:08)
[2022-07-29] MEDS: IPRATROPIUM NASAL SPRAY 0.03% 15 ML BOTTLE 2 SPRAY NASAL (08:09)
[2022-07-29] MEDS: FLUTICASONE PROPIONATE 0.05% NA SPR 16 GM BTL (*BKC) 2 SPRAY NASAL (08:09)
[2022-07-29] MEDS: DICLOFENAC SODIUM 1% 100 GM GEL (*BKC) 1 APPLIC TOPICAL (08:11)
[2022-07-29] MEDS: SILVERGEL (ELTA) 45 ML 1 APPLIC TOPICAL (10:10)
[2022-07-29 11:12] LABS: Glucose Point of Care 251 mg/dl (65-105)
[2022-07-29 11:33] LABS: Glucose Point of Care 259 mg/dl (65-105)
[2022-07-29] MEDS: INSULIN ASPART (*BKC) 100 UNITS/ML SUB-Q (12:32)
--- NOTE | 2022-07-29 13:38 | PM.DS ---
DS: Admitting Diagnosis Discharge Date 07/29/2022 Admitting Diagnosis Right ankle fracture DS: Discharge Diagnosis Discharge Diagnosis (1) Bimalleolar ankle fracture: Qualifiers: Encounter type: initial encounter Fracture type: closed Laterality: right Qualified Code(s): S82.841A - Displaced bimalleolar fracture of right lower leg, initial encounter for closed fracture Code(s): S82.843A - Displaced bimalleolar fracture of unspecified lower leg, initial encounter for closed fracture Status: Deleted Assessment and Plan: Patient hit her right ankle against the wall in her motor scooter. Right ankle x-ray revealed bimalleolar ankle fracture Appreciate orthopedic surgery recommendations Conservative management with stirrup splint Outpatient Orthopedic follow-up for repeat imaging in 1 month Continue therapy at [facility] Continue supportive care (2) DM2 (diabetes mellitus, type 2): Code(s): E11.9 - Type 2 diabetes mellitus without complications Status: Acute Assessment and Plan: A1c is 6.2 Blood sugars remained controlled Managed with accu-Cheks, sliding scale insulin, and hypoglycemic protocol (3) Atrial fibrillation, chronic: Code(s): I48.20 - Chronic atrial fibrillation, unspecified Status: Acute Assessment and Plan: Rate is controlled Continue home carvedilol and Eliquis (4) Hypertension: Code(s): I10 - Essential (primary) hypertension Status: Acute Assessment and Plan: Blood pressure stable. Continue home carvedilol 6.25 mg b.i.d. (5) CKD (chronic kidney disease): Code(s): N18.9 - Chronic kidney disease, unspecified Status: Acute Assessment and Plan: No prior labs available to establish baseline Renal ultrasound showed bilateral increased renal cortical echogenicity which is seen with chronic renal disease. No evidence of hydronephrosis Suspect patient is at her baseline. Outpatient follow-up with PCP for continued monitoring of renal function (6) UTI (urinary tract infection): Code(s): N39.0 - Urinary tract infection, site not specified Status: Acute Assessment and Plan: UA is abnormal with positive nitrates, 2+ leuk esterase, 21-50 WBC and 4+ bacteria Urine culture with growth of E coli Begin cefdinir 300 mg b.i.d. for 7 days DS: Summary Hospital Course Hospital Course: Date of admission: 07/26/2022 Date of discharge: 07/29/2022 Leonie Casper is an 87-year-old female with a history of atrial fibrillation on chronic anticoagulation, CKD, CVA, type 2 diabetes mellitus, and hypertension who presented to the emergency department on 07/26/2022 with complaints of right ankle pain after hitting her ankle against the wall in her motor scooter. On presentation to the ED, her vital signs were stable, she was afebrile, right ankle x-ray showed evidence of bimalleolar ankle fracture. She was admitted to the hospitalist service for further evaluation management was seen in consultation by Orthopedic surgery. Please see above for further details. Conservative management provided and patient will follow-up with Orthopedic surgery as an outpatient. Started on antibiotics for UTI which patient will continue as an outpatient. Patient was arranged to continue therapy as stone swing bed was discharged in hemodynamically stable condition on 07/29/2022. Time Spent with Patient Time attestation: Total time spent providing and/or coordinating discharge services: 45 minutes Time spent: Greater than 30 minutes Exam Narrative: General: Thin, chronically ill-appearing 87-year-old female, sitting up in a chair comfortable, NARD Neuro: awake, alert and oriented x4, speech clear, no focal neuro deficits noted HEENMT: normocephalic, atraumatic, EOMI, sclerae anicteric, hard of hearing Respiratory: clear to auscultation bilaterally, nonlabored breathing Ca
[2022-07-29 14:00] VITALS: BP 144/57; PULSE 94; RESP 20; TEMP 36.6; O2SAT 100
[2022-07-29 16:33] LABS: Glucose Point of Care 158 mg/dl (65-105)
[2022-07-31 21:24] LABS: Osmolality, Urine 401 mOsm/kg (50-1200)
== END 2022-07-29 18:12 | disposition home or self-care (01) ==
LOC: ANHED 16:42 → ANH3MEDSUR 19:52
PROVIDERS: Nurse Practitioner; Admitting Provider Chiropractor; Emergency Provider Physician Assistant; PCP Internal Medicine Geriatric Medicine; Visit Provider Physician Assistant
DX: S82.841A Displaced bimalleolar fracture of right lower leg, initial encounter for closed fracture (principal); X58.XXXA Exposure to other specified factors, initial encounter; E11.22 Type 2 diabetes mellitus with diabetic chronic kidney disease; I12.9 Hypertensive chronic kidney disease with stage 1 through stage 4 chronic kidney disease, or unspecified chronic kidney disease; N18.9 Chronic kidney disease, unspecified; I48.20 Chronic atrial fibrillation, unspecified; J45.909 Unspecified asthma, uncomplicated; N39.0 Urinary tract infection, site not specified; B96.20 Unspecified Escherichia coli [E. coli] as the cause of diseases classified elsewhere; M10.9 Gout, unspecified; M15.9 Polyosteoarthritis, unspecified; D64.9 Anemia, unspecified; R79.89 Other specified abnormal findings of blood chemistry; E78.5 Hyperlipidemia, unspecified; E11.65 Type 2 diabetes mellitus with hyperglycemia; Z86.73 Personal history of transient ischemic attack (TIA), and cerebral infarction without residual deficits; Z79.1 Long term (current) use of non-steroidal anti-inflammatories (NSAID); Z79.51 Long term (current) use of inhaled steroids; Z79.01 Long term (current) use of anticoagulants; Z79.899 Other long term (current) drug therapy; Z82.49 Family history of ischemic heart disease and other diseases of the circulatory system
CPT/HCPCS: 36415; 73610; 76775; 80048; 80053; 81001; 82550; 82570; 82607; 82728; 82746; 82948; 83036; 83540; 83550; 83605; 83735; 83935; 84300; 84443; 84466; 84540; 85025; 85027; 87077; 87086; 87186; 96374; 97110; 97161; 97165; 97530; 99214; 99285; A9270; G0378; G0463; J1815; J3475; J7030

== ENCOUNTER 2022-07-29 18:50 | Inpatient (IN) | payer MEDICARE, SELFPAY ==
[2022-07-29 18:50] VITALS: BP 108/55; PULSE 95; RESP 15; TEMP 37.2; O2SAT 94
[2022-07-29 19:17] VITALS: BMI 32.8
--- NOTE | 2022-07-29 19:27 | ADMGEN ---
This patient, Leonie Casper, was admitted to 2nd Floor Room 205-1. Patient/family oriented to hospital policies and general routines including ID bracelet, bed and alarms, visiting hours, pain management, procedures, bathroom and other care routines, personal items, smoking policy, room service/diet, and visiting hours. Information on how to activate the Rapid Response Team has been discussed. Patient are encouraged to report perceived risks to care and to ask questions if they do not understand what they are told or what they should do.
[2022-07-29] MEDS: CEFDINIR 300 MG CAPSULE PO (20:03)
[2022-07-29 21:02] LABS: Glucose Point of Care 167 mg/dl (65-105)
[2022-07-29] MEDS: traZODone HCL 50 MG TABLET PO (21:22)
[2022-07-29] MEDS: ACETAMINOPHEN 500 MG TABLET PO (21:22)
[2022-07-29 23:01] VITALS: BP 131/55; PULSE 90; RESP 14; TEMP 37.2; O2SAT 95
--- NOTE | 2022-07-30 04:32 | PC.NURSE ---
Pt awoken so the nursing staff could check to see if the pt had been incontinent of urine. Pt was incontinent of a couple voids, so this RN along w/assistance provided by Opal Diaz RN changed the pt's soiled depend, gown, and some bed linens. [place]-area cleansed w/hygiene wipes prior to applying a dry depend. Pt tolerated turning very well and assisted w/turning. Call light w/in reach, side railsx3, bed in lowest position, night light and bed alarm on for pt safety.
[2022-07-30 08:00] VITALS: BP 116/51; PULSE 93; RESP 18; TEMP 36.9; O2SAT 95
[2022-07-30 08:06] LABS: Glucose Point of Care 165 mg/dl (65-105)
--- NOTE | 2022-07-30 09:27 | PM.IMHP ---
H&P: HPI History of Present Illness Date/Time: 07/30/22 09:27 Chief Complaint: Swing, wEAKNESS, FRACTURE ANKLE Narrative: This is a 87-year-old female that presents from [facility]. Patient was there and being treated for fractured ankle she was in a motorized wheelchair and ran into the wall and fractured her ankle that does not need surgically repaired. Patient is here for physical therapy which she is going to be able to stand pivot into her wheelchair so that she can return home and help care for her own self. Patient has a past medical history of diabetes, atrial fibrillation, anxiety, chronic kidney disease, hyperlipidemia. Patient currently is being treated for a urinary tract infection she is on cefdinir she received medication until 5 4 physical therapy will see her today. We will encourage fluids and continue to monitor for any worsening signs and symptoms of this urinary tract infection. We will wait to see or ensure that the culture states that this medication will help patient patient is eating and drinking without any difficulty no nausea vomiting and/or diarrhea. Review of Systems Review of Systems: CONSTITUTIONAL: Denies fever, chills, or sweats. EYES: Denies visual changes, redness, or discharge. ENT: Denies rhinorrhea, congestion, sore throat, or otalgia. CARDIOVASCULAR:Denies chest pain, palpitations, or edema. RESPIRATORY: positive cough or dyspnea. GASTROINTESTINAL: Denies abdominal pain, nausea, vomiting, or diarrhea. GENITOURINARY: Denies dysuria or hematuria. SKIN:[Denies rash or itching. MUSCULOSKELETAL:Denies back pain, positive joint pain, or myalgia. NEUROLOGIC: Denies headache, numbness, or Positive weakness. PSYCHIATRIC:Denies anxiety or depression [facility] Past Medical History Medical History Asthma Atrial fibrillation, chronic CKD (chronic kidney disease) CVA (cerebral vascular accident) x2 DM2 (diabetes mellitus, type 2) Gout Hyperlipidemia Hypertension Nondisplaced bimalleolar fracture of right ankle Surgical History Surgical History History of hysterectomy including cervix S/P extracapsular cataract extraction Total knee replacement status right Family History Family History Mother Hypertension Daughter Breast cancer Social History Social History Social History: She lives with in an assisted living. She had one daughter that . She retired from [employer] in the [employer] office. Code status full code Smoking status: Never smoker Alcohol intake: never Substance use type: prescription drug Lack of Transportation: No Lack of Food: Never True Current Housing: I Have Housing Concerned About Future Housing: No Difficulty Paying Gas/Electric Bills: No Difficulty Paying for Meds: No Currently Unemployed: No Education: Trade/Vocational Certificate Difficulty w/ Childcare or Family Care: No Spiritual care concerns: Yes ([employer]) Comments At time as signature, I have reviewed and agree with nursing past medical, social, surgical and family history. Please see nursing chart for further information. There is no relevant family history pertinent to the presenting complaint. Meds Home Medications and Allergies Home Medications Medication Instructions Recorded Confirmed Type acetaminophen 500 mg tablet 500 mg PO Q6H PRN Pain 07/26/22 07/29/22 History albuterol sulfate 90 mcg/actuation 2 puff inhalation QID PRN Cough 07/26/22 07/29/22 History aerosol inhaler allopurinol 100 mg tablet 100 mg PO DAILY 07/26/22 07/29/22 History apixaban 2.5 mg tablet (Eliquis) 2.5 mg PO BID 07/26/22 07/29/22 History atorvastatin 10 mg tablet 10 mg PO DAILY 07/26/22 07/29/22 History carvedilol
[2022-07-30] MEDS: FLUTICASONE PROPIONATE 0.05% NA SPR 16 GM BTL (*BKC) 2 SPRAY NASAL (09:47)
[2022-07-30] MEDS: APIXABAN 2.5 MG TABLET PO ×2 (09:48→20:48)
[2022-07-30] MEDS: clonazePAM (*CRX) 0.5 MG TABLET 1 MG PO (09:48)
[2022-07-30] MEDS: CYANOCOBALAMIN 1,000 MCG TABLET 1000 MCG PO (09:48)
[2022-07-30] MEDS: CEFDINIR 300 MG CAPSULE PO ×2 (09:48→20:08)
[2022-07-30] MEDS: ACETAMINOPHEN 500 MG TABLET PO ×2 (09:48→21:01)
[2022-07-30] MEDS: IPRATROPIUM NASAL SPRAY 0.03% 15 ML BOTTLE 2 SPRAY NASAL ×2 (09:48→17:52)
[2022-07-30] MEDS: DULoxetine HCL 20 MG CAPSULE.DR PO ×2 (09:48→17:52)
[2022-07-30] MEDS: DICLOFENAC SODIUM 1% 100 GM GEL (*BKC) 1 APPLIC TOPICAL (09:48)
[2022-07-30] MEDS: ATORVASTATIN 10 MG TABLET PO (09:48)
[2022-07-30] MEDS: FUROSEMIDE 20 MG TABLET PO (09:48)
[2022-07-30] MEDS: allopurinoL 100 MG TABLET PO (09:48)
[2022-07-30 09:56] VITALS: PULSE 93
[2022-07-30] MEDS: carvediloL 6.25 MG TABLET PO ×2 (09:56→20:46)
[2022-07-30 16:00] VITALS: BP 116/53; PULSE 82; RESP 16; TEMP 36.4; O2SAT 95
[2022-07-30 20:45] LABS: Glucose Point of Care 257 mg/dl (65-105)
[2022-07-30 20:46] VITALS: PULSE 91
[2022-07-30] MEDS: traZODone HCL 50 MG TABLET PO (21:01)
[2022-07-30] MEDS: ALBUTEROL SULFATE (*SP) INHALER 2 PUFF INHALATION (21:01)
[2022-07-30 23:53] VITALS: BP 127/73; PULSE 90; RESP 20; TEMP 36.2; O2SAT 99
[2022-07-31 07:56] VITALS: BP 120/60; PULSE 103; RESP 16; TEMP 36.8; O2SAT 90
[2022-07-31 08:01] LABS: Glucose Point of Care 167 mg/dl (65-105)
--- NOTE | 2022-07-31 08:17 | PM.EVENT ---
Event Note Event Note Event Note: Cefdinir will cover E coli that patient is already on . Patient is complaining of a cough and it is bothering her . I order cough medicine for her he has remained afebrile.
[2022-07-31] MEDS: ALBUTEROL SULFATE (*SP) INHALER 2 PUFF INHALATION (08:20)
[2022-07-31] MEDS: allopurinoL 100 MG TABLET PO (08:23)
[2022-07-31] MEDS: ACETAMINOPHEN 500 MG TABLET PO ×2 (08:24→16:22)
[2022-07-31 08:26] VITALS: PULSE 103
[2022-07-31] MEDS: carvediloL 6.25 MG TABLET PO ×2 (08:26→21:01)
[2022-07-31] MEDS: DULoxetine HCL 20 MG CAPSULE.DR PO ×2 (08:26→16:23)
[2022-07-31] MEDS: APIXABAN 2.5 MG TABLET PO ×2 (08:26→21:01)
[2022-07-31] MEDS: ATORVASTATIN 10 MG TABLET PO (08:27)
[2022-07-31] MEDS: FUROSEMIDE 20 MG TABLET PO (08:27)
[2022-07-31] MEDS: DICLOFENAC SODIUM 1% 100 GM GEL (*BKC) 1 APPLIC TOPICAL ×2 (08:27→16:23)
[2022-07-31] MEDS: CYANOCOBALAMIN 1,000 MCG TABLET 1000 MCG PO (08:27)
[2022-07-31] MEDS: CEFDINIR 300 MG CAPSULE PO ×2 (08:27→19:51)
[2022-07-31] MEDS: IPRATROPIUM NASAL SPRAY 0.03% 15 ML BOTTLE 2 SPRAY NASAL ×2 (08:28→16:28)
[2022-07-31] MEDS: FLUTICASONE PROPIONATE 0.05% NA SPR 16 GM BTL (*BKC) 2 SPRAY NASAL (08:28)
[2022-07-31] MEDS: clonazePAM (*CRX) 0.5 MG TABLET 1 MG PO (09:00)
[2022-07-31] MEDS: guaiFENesin/DEXTROMETHORPHAN 5 ML UDC PO (09:17)
[2022-07-31 16:00] VITALS: BP 136/63; PULSE 85; RESP 16; TEMP 36.5; O2SAT 97
[2022-07-31 20:02] LABS: Glucose Point of Care 206 mg/dl (65-105)
[2022-07-31 21:01] VITALS: PULSE 90
[2022-07-31] MEDS: traZODone HCL 50 MG TABLET PO (21:01)
[2022-08-01] VITALS (7 sets, daily range): BP systolic 124–142; BP diastolic 63–67; PULSE 85–98; RESP 16–20; TEMP 36.3–36.8; O2SAT 90–96
[2022-08-01 05:21] LABS: Hematocrit 26.5 % (35.0-42.0); Hemoglobin 8.5 g/dL (11.7-13.8); Mean Corpuscular HGB Conc 32.1 g/dL (32.0-36.0); Mean Corpuscular Hemoglobin 30.7 pg (27.0-31.0); Mean Corpuscular Volume 95.7 fL (78.0-102.0); Mean Platelet Volume 10.8 fl (9.2-11.8); Platelet Count Result 267 K/mm3 (150-420); Red Blood Count 2.77 M/mm3 (4.20-5.40); Red Cell Distribution Width 12.3 % (11.6-14.4); White Blood Count 6.1 K/mm3 (4.8-10.8)
[2022-08-01 05:30] LABS: Anion Gap 5 mmol/L (8-16); Blood Urea Nitrogen 43 mg/dL (7-18); Calcium 9.8 mg/dL (8.5-10.1); Carbon Dioxide 32 mmol/L (21-32); Chloride 103 mmol/L (98-108); Estimated Glomerular Filt Rate 37; Glucose 165 mg/dL (70-99); Osmolality Calculated 304 mOsm/kg (285-295); Potassium 4.4 mmol/L (3.5-5.1); Sodium 140 mmol/L (136-145)
[2022-08-01] MEDS: guaiFENesin/DEXTROMETHORPHAN 5 ML UDC PO (08:13)
[2022-08-01] MEDS: ACETAMINOPHEN 500 MG TABLET PO (08:13)
[2022-08-01] MEDS: CYANOCOBALAMIN 1,000 MCG TABLET 1000 MCG PO (08:14)
[2022-08-01] MEDS: DULoxetine HCL 20 MG CAPSULE.DR PO ×2 (08:14→16:50)
[2022-08-01] MEDS: ATORVASTATIN 10 MG TABLET PO (08:14)
[2022-08-01] MEDS: allopurinoL 100 MG TABLET PO (08:15)
[2022-08-01] MEDS: CEFDINIR 300 MG CAPSULE PO ×2 (08:15→19:22)
[2022-08-01] MEDS: carvediloL 6.25 MG TABLET PO ×2 (08:15→20:54)
[2022-08-01] MEDS: IPRATROPIUM NASAL SPRAY 0.03% 15 ML BOTTLE 2 SPRAY NASAL ×2 (08:16→16:50)
[2022-08-01] MEDS: APIXABAN 2.5 MG TABLET PO ×2 (08:16→20:54)
[2022-08-01] MEDS: FUROSEMIDE 20 MG TABLET PO (08:16)
[2022-08-01] MEDS: DICLOFENAC SODIUM 1% 100 GM GEL (*BKC) 1 APPLIC TOPICAL ×3 (08:16→16:50)
[2022-08-01] MEDS: FLUTICASONE PROPIONATE 0.05% NA SPR 16 GM BTL (*BKC) 2 SPRAY NASAL (08:17)
[2022-08-01 19:50] LABS: Glucose Point of Care 150 mg/dl (65-105)
--- NOTE | 2022-08-01 19:50 | PC.NURSE ---
Pt resting in bed warching TV, no c/o and no issues at this time. HS BS is 150. VSS, call anderson at pt side and pt encouraged to call if needed.
[2022-08-01] MEDS: traZODone HCL 50 MG TABLET PO (20:54)
[2022-08-02 08:00] VITALS: BP 122/57; PULSE 77; RESP 14; TEMP 36.6; O2SAT 94
[2022-08-02] MEDS: CEFDINIR 300 MG CAPSULE PO ×2 (08:16→17:49)
[2022-08-02 08:20] LABS: Glucose Point of Care 143 mg/dl (65-105)
[2022-08-02] MEDS: DULoxetine HCL 20 MG CAPSULE.DR PO ×2 (09:09→17:49)
[2022-08-02 09:10] VITALS: PULSE 78
[2022-08-02] MEDS: carvediloL 6.25 MG TABLET PO ×2 (09:10→21:03)
[2022-08-02] MEDS: FUROSEMIDE 20 MG TABLET PO (09:10)
[2022-08-02] MEDS: allopurinoL 100 MG TABLET PO (09:10)
[2022-08-02] MEDS: ATORVASTATIN 10 MG TABLET PO (09:10)
[2022-08-02] MEDS: APIXABAN 2.5 MG TABLET PO ×2 (09:10→21:03)
[2022-08-02] MEDS: CYANOCOBALAMIN 1,000 MCG TABLET 1000 MCG PO (09:10)
[2022-08-02] MEDS: IPRATROPIUM NASAL SPRAY 0.03% 15 ML BOTTLE 2 SPRAY NASAL ×2 (09:11→17:51)
[2022-08-02] MEDS: FLUTICASONE PROPIONATE 0.05% NA SPR 16 GM BTL (*BKC) 2 SPRAY NASAL (09:11)
[2022-08-02] MEDS: DICLOFENAC SODIUM 1% 100 GM GEL (*BKC) 1 APPLIC TOPICAL ×2 (09:12→17:50)
[2022-08-02 16:40] VITALS: BP 121/57; PULSE 96; RESP 16; TEMP 36.4; O2SAT 96
--- NOTE | 2022-08-02 20:00 | PC.NURSE ---
Move Often Very Early Safely was started today. Patient was able to complete the Sit and Reach and Straighten and Point levels, but was unable to Stand from a seated position on the bed and stand for 5 seconds. Although this would typically indicate that she should use the Deisy Plus, patient has been successful using the Deisy Stedy.
[2022-08-02 20:21] LABS: Glucose Point of Care 167 mg/dl (65-105)
[2022-08-02 21:03] VITALS: PULSE 92
[2022-08-02] MEDS: clonazePAM (*CRX) 0.5 MG TABLET 1 MG PO (21:07)
[2022-08-03] VITALS (8 sets, daily range): BP systolic 102–164; BP diastolic 54–74; PULSE 82–96; RESP 16–20; TEMP 36.1–36.6; O2SAT 90–96
[2022-08-03] MEDS: CEFDINIR 300 MG CAPSULE PO ×2 (06:38→17:46)
[2022-08-03 07:53] LABS: Glucose Point of Care 173 mg/dl (65-105)
[2022-08-03] MEDS: FLUTICASONE PROPIONATE 0.05% NA SPR 16 GM BTL (*BKC) 2 SPRAY NASAL (09:22)
[2022-08-03] MEDS: IPRATROPIUM NASAL SPRAY 0.03% 15 ML BOTTLE 2 SPRAY NASAL ×2 (09:22→17:44)
[2022-08-03] MEDS: CYANOCOBALAMIN 1,000 MCG TABLET 1000 MCG PO (09:23)
[2022-08-03] MEDS: ALBUTEROL SULFATE (*SP) INHALER 2 PUFF INHALATION (09:23)
[2022-08-03] MEDS: FUROSEMIDE 20 MG TABLET PO (09:23)
[2022-08-03] MEDS: APIXABAN 2.5 MG TABLET PO ×2 (09:23→21:29)
[2022-08-03] MEDS: DULoxetine HCL 20 MG CAPSULE.DR PO ×2 (09:24→17:44)
[2022-08-03] MEDS: allopurinoL 100 MG TABLET PO (09:24)
[2022-08-03] MEDS: ATORVASTATIN 10 MG TABLET PO (09:24)
[2022-08-03] MEDS: carvediloL 6.25 MG TABLET PO ×2 (09:24→21:29)
[2022-08-03] MEDS: DICLOFENAC SODIUM 1% 100 GM GEL (*BKC) 1 APPLIC TOPICAL ×2 (09:25→17:44)
[2022-08-03] MEDS: traZODone HCL 50 MG TABLET PO (21:29)
[2022-08-03] MEDS: clonazePAM (*CRX) 0.5 MG TABLET 1 MG PO (21:29)
[2022-08-03 21:39] LABS: Glucose Point of Care 153 mg/dl (65-105)
[2022-08-04 05:36] VITALS: O2SAT 98
[2022-08-04 07:59] LABS: Glucose Point of Care 168 mg/dl (65-105)
[2022-08-04 08:00] VITALS: BP 110/60; PULSE 86; RESP 14; TEMP 36.6; O2SAT 97
[2022-08-04] MEDS: CYANOCOBALAMIN 1,000 MCG TABLET 1000 MCG PO (09:40)
[2022-08-04] MEDS: APIXABAN 2.5 MG TABLET PO ×2 (09:40→21:03)
[2022-08-04] MEDS: ATORVASTATIN 10 MG TABLET PO (09:40)
[2022-08-04] MEDS: FLUTICASONE PROPIONATE 0.05% NA SPR 16 GM BTL (*BKC) 2 SPRAY NASAL (09:40)
[2022-08-04] MEDS: DULoxetine HCL 20 MG CAPSULE.DR PO ×2 (09:40→16:54)
[2022-08-04] MEDS: FUROSEMIDE 20 MG TABLET PO (09:40)
[2022-08-04] MEDS: allopurinoL 100 MG TABLET PO (09:40)
--- NOTE | 2022-08-04 09:59 | WPDPN ---
Progress Note: A&P Assessment and Plan (1) UTI (urinary tract infection): Code(s): N39.0 - Urinary tract infection, site not specified Status: Acute Assessment and Plan: Cefidnir encourage plenty of fluids continue to monitor for worsening symptoms continue to monitoring for worsening symptoms (2) Nondisplaced bimalleolar fracture of right ankle: Qualifiers: Encounter type: subsequent encounter Fracture type: closed Fracture healing: with routine healing Qualified Code(s): S82.844D - Nondisplaced bimalleolar fracture of right lower leg, subsequent encounter for closed fracture with routine healing Code(s): S82.844A - Nondisplaced bimalleolar fracture of right lower leg, initial encounter for closed fracture Status: Acute Assessment and Plan: WBAT PT/OT evaluate and treat (3) Anxiety: Code(s): F41.9 - Anxiety disorder, unspecified Status: Acute Assessment and Plan: Stable treat prn as needed (4) CKD (chronic kidney disease): Code(s): N18.9 - Chronic kidney disease, unspecified Status: Acute Assessment and Plan: avoid nephrotoxic medication (5) Hypertension: Code(s): I10 - Essential (primary) hypertension Status: Acute Assessment and Plan: continue to monitor blood pressure continue with home medication will adjust accordingly (6) Asthma: Code(s): J45.909 - Unspecified asthma, uncomplicated Status: Acute Assessment and Plan: oxygen as indicated inhaler per home dosage monitor for worsening symptoms (7) Atrial fibrillation, chronic: Code(s): I48.20 - Chronic atrial fibrillation, unspecified Status: Acute Assessment and Plan: stable continue on home medication continue anticoagulation (8) DM2 (diabetes mellitus, type 2): Code(s): E11.9 - Type 2 diabetes mellitus without complications Status: Acute Assessment and Plan: AccuCheck insulin per sliding scale will hold oral antiglycemic Subjective Date/time seen: 08/04/22 09:59 Interval history: patient has no complaints at this time she does note that she has not had a bowel movement for 7 days will start patient on stool softeners daily. The patient denies SOB, CP, palpitation, extremity numbness, lightheadedness, dizziness, constipation, diarrhea, chills, or fever. Review of Systems Review of Systems: CONSTITUTIONAL: Denies fever, chills, or sweats. EYES: Denies visual changes, redness, or discharge. ENT: Denies rhinorrhea, congestion, sore throat, or otalgia. CARDIOVASCULAR:Denies chest pain, palpitations, or edema. RESPIRATORY: positive cough or dyspnea. GASTROINTESTINAL: Denies abdominal pain, nausea, vomiting, or diarrhea. GENITOURINARY: Denies dysuria or hematuria. SKIN:[Denies rash or itching. MUSCULOSKELETAL:Denies back pain, positive joint pain, or myalgia. NEUROLOGIC: Denies headache, numbness, or Positive weakness. PSYCHIATRIC:Denies anxiety or depression Exam Narrative: GENERAL:Ill appearing, well-nourished, and in no acute distress. HEAD:Normocephalic, atraumatic. EYES: PERRLA and EOMI. ENT: Nares clear, no rhinorrhea or epistaxis. Mucous membranes moist. NECK: Supple. CHEST: diminished to auscultation. No respiratory distress. HEART: Regular rate and rhythm. Normal peripheral pulses. ABDOMEN: Soft, nontender, nondistended, normal active bowel sounds. EXTREMITIES: decreased range of motion. moderate right ankle edema. SKIN: Warm, dry, no rash. NEURO: No focal deficits. Alert and oriented x3. Objective Data Vital Signs Vital Signs: Vital Signs - 24 hr 08/03/22 16:40 08/03/22 21:29 08/03/22 23:02 Temperature 36.6 C 36.1 C L Pulse Rate 87 87 86 Respiratory Rate 16 16 Blood Pressure 127/62 102/57 L Pulse Oximetry 94 95 Oxygen Delivery Room Air Room Air 08/03/22 15:55 Temperature Pulse Rate
[2022-08-04 10:35] VITALS: PULSE 86
[2022-08-04] MEDS: carvediloL 6.25 MG TABLET PO ×2 (10:35→21:04)
[2022-08-04] MEDS: CEFDINIR 300 MG CAPSULE PO ×2 (10:38→19:23)
[2022-08-04] MEDS: IPRATROPIUM NASAL SPRAY 0.03% 15 ML BOTTLE 2 SPRAY NASAL ×2 (10:39→16:56)
[2022-08-04] MEDS: ALBUTEROL SULFATE (*SP) INHALER 2 PUFF INHALATION (10:39)
[2022-08-04 16:00] VITALS: BP 136/59; PULSE 96; RESP 18; TEMP 36.4; O2SAT 97
[2022-08-04] MEDS: ACETAMINOPHEN 500 MG TABLET PO (16:54)
[2022-08-04] MEDS: DICLOFENAC SODIUM 1% 100 GM GEL (*BKC) 1 APPLIC TOPICAL (16:56)
[2022-08-04] MEDS: traZODone HCL 50 MG TABLET PO (21:03)
[2022-08-04] MEDS: clonazePAM (*CRX) 0.5 MG TABLET 1 MG PO (21:03)
[2022-08-04] MEDS: DOCUSATE SODIUM 100 MG CAPSULE PO (21:03)
[2022-08-04 21:04] LABS: Glucose Point of Care 240 mg/dl (65-105)
[2022-08-05] VITALS (7 sets, daily range): BP systolic 108–136; BP diastolic 60–69; PULSE 81–89; RESP 16–20; TEMP 35.7–36.4; O2SAT 95–98
[2022-08-05 07:49] LABS: Glucose Point of Care 130 mg/dl (65-105)
[2022-08-05] MEDS: IPRATROPIUM NASAL SPRAY 0.03% 15 ML BOTTLE 2 SPRAY NASAL ×2 (08:18→17:00)
[2022-08-05] MEDS: FLUTICASONE PROPIONATE 0.05% NA SPR 16 GM BTL (*BKC) 2 SPRAY NASAL (08:18)
[2022-08-05] MEDS: DULoxetine HCL 20 MG CAPSULE.DR PO ×2 (08:18→17:01)
[2022-08-05] MEDS: APIXABAN 2.5 MG TABLET PO ×2 (08:19→20:52)
[2022-08-05] MEDS: CEFDINIR 300 MG CAPSULE PO (08:19)
[2022-08-05] MEDS: FUROSEMIDE 20 MG TABLET PO (08:19)
[2022-08-05] MEDS: ATORVASTATIN 10 MG TABLET PO (08:19)
[2022-08-05] MEDS: ACETAMINOPHEN 500 MG TABLET PO ×2 (08:20→20:51)
[2022-08-05] MEDS: CYANOCOBALAMIN 1,000 MCG TABLET 1000 MCG PO (08:20)
[2022-08-05] MEDS: DOCUSATE SODIUM 100 MG CAPSULE PO ×2 (08:21→20:52)
[2022-08-05] MEDS: DICLOFENAC SODIUM 1% 100 GM GEL (*BKC) 1 APPLIC TOPICAL ×3 (08:21→17:00)
[2022-08-05] MEDS: carvediloL 6.25 MG TABLET PO ×2 (08:23→20:51)
[2022-08-05] MEDS: allopurinoL 100 MG TABLET PO (08:23)
[2022-08-05] MEDS: clonazePAM (*CRX) 0.5 MG TABLET 1 MG PO (20:51)
[2022-08-05] MEDS: traZODone HCL 50 MG TABLET PO (20:52)
[2022-08-05 20:55] LABS: Glucose Point of Care 201 mg/dl (65-105)
--- NOTE | 2022-08-05 21:00 | PC.NURSE ---
CPAP applied per order with 2L O2 bleed in, tolerated well.
[2022-08-06] VITALS: BP 121/54; PULSE 86; RESP 16; TEMP 36.6; O2SAT 96
[2022-08-06 05:41] VITALS: O2SAT 98
[2022-08-06 08:00] VITALS: BP 124/86; PULSE 74; RESP 18; TEMP 36.6; O2SAT 96
[2022-08-06] MEDS: FLUTICASONE PROPIONATE 0.05% NA SPR 16 GM BTL (*BKC) 2 SPRAY NASAL (09:41)
[2022-08-06 09:42] VITALS: PULSE 74
[2022-08-06] MEDS: carvediloL 6.25 MG TABLET PO ×2 (09:42→20:26)
[2022-08-06] MEDS: DULoxetine HCL 20 MG CAPSULE.DR PO ×2 (09:43→16:39)
[2022-08-06] MEDS: DOCUSATE SODIUM 100 MG CAPSULE PO ×2 (09:43→20:26)
[2022-08-06] MEDS: FUROSEMIDE 20 MG TABLET PO (09:43)
[2022-08-06] MEDS: APIXABAN 2.5 MG TABLET PO ×2 (09:43→20:26)
[2022-08-06] MEDS: CYANOCOBALAMIN 1,000 MCG TABLET 1000 MCG PO (09:43)
[2022-08-06] MEDS: ATORVASTATIN 10 MG TABLET PO (09:43)
[2022-08-06] MEDS: allopurinoL 100 MG TABLET PO (09:43)
[2022-08-06] MEDS: DICLOFENAC SODIUM 1% 100 GM GEL (*BKC) 1 APPLIC TOPICAL ×2 (09:43→16:39)
[2022-08-06] MEDS: IPRATROPIUM NASAL SPRAY 0.03% 15 ML BOTTLE 2 SPRAY NASAL ×2 (09:44→16:39)
[2022-08-06 16:00] VITALS: BP 138/61; PULSE 82; RESP 16; TEMP 36.5; O2SAT 98
[2022-08-06 20:26] VITALS: PULSE 95
[2022-08-06] MEDS: clonazePAM (*CRX) 0.5 MG TABLET 1 MG PO (20:26)
[2022-08-07] VITALS (7 sets, daily range): BP systolic 112–141; BP diastolic 61–65; PULSE 65–99; RESP 14–20; TEMP 36–36.8; O2SAT 94–98
[2022-08-07 08:14] LABS: Glucose Point of Care 157 mg/dl (65-105)
[2022-08-07] MEDS: FLUTICASONE PROPIONATE 0.05% NA SPR 16 GM BTL (*BKC) 2 SPRAY NASAL (09:22)
[2022-08-07] MEDS: ALBUTEROL SULFATE (*SP) INHALER 2 PUFF INHALATION (09:23)
[2022-08-07] MEDS: DOCUSATE SODIUM 100 MG CAPSULE PO ×2 (09:23→21:13)
[2022-08-07] MEDS: DULoxetine HCL 20 MG CAPSULE.DR PO ×2 (09:23→17:47)
[2022-08-07] MEDS: IPRATROPIUM NASAL SPRAY 0.03% 15 ML BOTTLE 2 SPRAY NASAL ×2 (09:23→17:47)
[2022-08-07] MEDS: APIXABAN 2.5 MG TABLET PO ×2 (09:24→21:14)
[2022-08-07] MEDS: CYANOCOBALAMIN 1,000 MCG TABLET 1000 MCG PO (09:24)
[2022-08-07] MEDS: carvediloL 6.25 MG TABLET PO ×2 (09:24→21:13)
[2022-08-07] MEDS: allopurinoL 100 MG TABLET PO (09:24)
[2022-08-07] MEDS: ATORVASTATIN 10 MG TABLET PO (09:25)
[2022-08-07] MEDS: FUROSEMIDE 20 MG TABLET PO (09:25)
[2022-08-07] MEDS: DICLOFENAC SODIUM 1% 100 GM GEL (*BKC) 1 APPLIC TOPICAL (17:47)
[2022-08-07] MEDS: clonazePAM (*CRX) 0.5 MG TABLET 1 MG PO (21:13)
[2022-08-07] MEDS: traZODone HCL 50 MG TABLET PO (21:14)
[2022-08-07 21:17] LABS: Glucose Point of Care 165 mg/dl (65-105)
[2022-08-08 05:44] VITALS: O2SAT 98
[2022-08-08 08:00] VITALS: BP 165/68; PULSE 85; RESP 14; TEMP 36.3; O2SAT 98
[2022-08-08 08:05] LABS: Glucose Point of Care 135 mg/dl (65-105)
[2022-08-08] MEDS: ATORVASTATIN 10 MG TABLET PO (10:04)
[2022-08-08] MEDS: DULoxetine HCL 20 MG CAPSULE.DR PO ×2 (10:04→17:55)
[2022-08-08] MEDS: CYANOCOBALAMIN 1,000 MCG TABLET 1000 MCG PO (10:04)
[2022-08-08] MEDS: allopurinoL 100 MG TABLET PO (10:04)
[2022-08-08] MEDS: FUROSEMIDE 20 MG TABLET PO (10:04)
[2022-08-08] MEDS: APIXABAN 2.5 MG TABLET PO ×2 (10:04→21:39)
[2022-08-08 10:05] VITALS: PULSE 78
[2022-08-08] MEDS: DOCUSATE SODIUM 100 MG CAPSULE PO ×2 (10:05→21:39)
[2022-08-08] MEDS: IPRATROPIUM NASAL SPRAY 0.03% 15 ML BOTTLE 2 SPRAY NASAL ×2 (10:05→17:55)
[2022-08-08] MEDS: carvediloL 6.25 MG TABLET PO ×2 (10:05→21:39)
[2022-08-08] MEDS: ALBUTEROL SULFATE (*SP) INHALER 2 PUFF INHALATION (10:05)
[2022-08-08] MEDS: FLUTICASONE PROPIONATE 0.05% NA SPR 16 GM BTL (*BKC) 2 SPRAY NASAL (10:06)
[2022-08-08] MEDS: DICLOFENAC SODIUM 1% 100 GM GEL (*BKC) 1 APPLIC TOPICAL ×2 (10:06→17:55)
[2022-08-08 16:25] VITALS: BP 148/61; PULSE 84; RESP 16; TEMP 36.6; O2SAT 97
[2022-08-08] MEDS: clonazePAM (*CRX) 0.5 MG TABLET 1 MG PO (21:38)
[2022-08-08 21:39] VITALS: PULSE 92
[2022-08-08] MEDS: traZODone HCL 50 MG TABLET PO (21:39)
[2022-08-08 21:43] LABS: Glucose Point of Care 141 mg/dl (65-105)
[2022-08-08 23:44] VITALS: BP 114/50; PULSE 92; RESP 16; TEMP 36.5; O2SAT 92
[2022-08-09 05:52] VITALS: O2SAT 99
--- NOTE | 2022-08-09 06:42 | WPDPN ---
Progress Note: A&P Assessment and Plan (1) UTI (urinary tract infection): Code(s): N39.0 - Urinary tract infection, site not specified Status: Acute Assessment and Plan: Cefidnir Completed encourage plenty of fluids continue to monitor for worsening symptoms continue to monitoring for worsening symptoms (2) Nondisplaced bimalleolar fracture of right ankle: Qualifiers: Encounter type: subsequent encounter Fracture type: closed Fracture healing: with routine healing Qualified Code(s): S82.844D - Nondisplaced bimalleolar fracture of right lower leg, subsequent encounter for closed fracture with routine healing Code(s): S82.844A - Nondisplaced bimalleolar fracture of right lower leg, initial encounter for closed fracture Status: Acute Assessment and Plan: WBAT PT/OT evaluate and treat (3) Anxiety: Code(s): F41.9 - Anxiety disorder, unspecified Status: Acute Assessment and Plan: Stable treat prn as needed (4) CKD (chronic kidney disease): Code(s): N18.9 - Chronic kidney disease, unspecified Status: Acute Assessment and Plan: avoid nephrotoxic medication (5) Hypertension: Code(s): I10 - Essential (primary) hypertension Status: Acute Assessment and Plan: continue to monitor blood pressure continue with home medication will adjust accordingly (6) Asthma: Code(s): J45.909 - Unspecified asthma, uncomplicated Status: Acute Assessment and Plan: oxygen as indicated inhaler per home dosage monitor for worsening symptoms (7) Atrial fibrillation, chronic: Code(s): I48.20 - Chronic atrial fibrillation, unspecified Status: Acute Assessment and Plan: stable continue on home medication continue anticoagulation (8) DM2 (diabetes mellitus, type 2): Code(s): E11.9 - Type 2 diabetes mellitus without complications Status: Acute Assessment and Plan: AccuCheck insulin per sliding scale will hold oral antiglycemic Subjective Date/time seen: 08/09/22 06:42 Interval history: patient has no complaints she is having a regular bowel movement , Getting adequate sleep , pain control, and tolerating her meals and physical therapy is going well. The patient denies SOB, CP, palpitation, extremity numbness, lightheadedness, dizziness, constipation, diarrhea, chills, or fever. Review of Systems Review of Systems: All systems reviewed & are unremarkable except as noted in HPI and below Exam Narrative: GENERAL:Ill appearing, well-nourished, and in no acute distress. HEAD:Normocephalic, atraumatic. EYES: PERRLA and EOMI. ENT: Nares clear, no rhinorrhea or epistaxis. Mucous membranes moist. NECK: Supple. CHEST: diminished to auscultation. No respiratory distress. HEART: Regular rate and rhythm. Normal peripheral pulses. ABDOMEN: Soft, nontender, nondistended, normal active bowel sounds. EXTREMITIES: decreased range of motion. moderate right ankle edema. SKIN: Warm, dry, no rash. NEURO: No focal deficits. Alert and oriented x3. Objective Data Vital Signs Vital Signs: Vital Signs - 24 hr 08/08/22 10:05 08/08/22 08:00 08/08/22 16:25 Temperature 36.3 C L 36.6 C Pulse Rate 78 85 84 Respiratory Rate 14 16 Blood Pressure 165/68 H 148/61 H Pulse Oximetry 98 97 Oxygen Delivery Room Air Room Air 08/08/22 21:39 08/08/22 23:44 Temperature 36.5 C Pulse Rate 92 92 Respiratory Rate 16 Blood Pressure 114/50 L Pulse Oximetry 92 Oxygen Delivery Room Air Intake/Output Intake/Output: Intake & Output 08/06/22 08/07/22 08/08/22 08/09/22 23:59 23:59 23:59 23:59 Intake Total 985 1380 1240 350 Output Total 200 Balance 785 1380 1240 350 Meds/Results Medications: Active Medications Generic Name Dose Route Start Last Admin Trade Name Freq PRN Reason Stop Dose Admin Acetaminophen 500 mg
[2022-08-09 07:43] LABS: Glucose Point of Care 152 mg/dl (65-105)
[2022-08-09 08:00] VITALS: BP 116/51; PULSE 86; RESP 16; TEMP 36.3; O2SAT 100
[2022-08-09 08:24] LABS: Glucose Point of Care 202 mg/dl (65-105)
[2022-08-09] MEDS: IPRATROPIUM NASAL SPRAY 0.03% 15 ML BOTTLE 2 SPRAY NASAL ×2 (08:33→16:55)
[2022-08-09] MEDS: FLUTICASONE PROPIONATE 0.05% NA SPR 16 GM BTL (*BKC) 2 SPRAY NASAL (08:33)
[2022-08-09 08:34] VITALS: PULSE 86
[2022-08-09] MEDS: DULoxetine HCL 20 MG CAPSULE.DR PO ×2 (08:34→16:55)
[2022-08-09] MEDS: carvediloL 6.25 MG TABLET PO ×2 (08:34→20:50)
[2022-08-09] MEDS: CYANOCOBALAMIN 1,000 MCG TABLET 1000 MCG PO (08:34)
[2022-08-09] MEDS: ACETAMINOPHEN 500 MG TABLET PO (08:35)
[2022-08-09] MEDS: APIXABAN 2.5 MG TABLET PO ×2 (08:35→20:50)
[2022-08-09] MEDS: DOCUSATE SODIUM 100 MG CAPSULE PO ×2 (08:35→20:50)
[2022-08-09] MEDS: allopurinoL 100 MG TABLET PO (08:35)
[2022-08-09] MEDS: ATORVASTATIN 10 MG TABLET PO (08:36)
[2022-08-09] MEDS: FUROSEMIDE 20 MG TABLET PO (08:36)
[2022-08-09] MEDS: DICLOFENAC SODIUM 1% 100 GM GEL (*BKC) 1 APPLIC TOPICAL ×3 (08:37→16:55)
[2022-08-09 16:00] VITALS: BP 116/42; PULSE 94; RESP 16; TEMP 36.6; O2SAT 94
[2022-08-09] MEDS: clonazePAM (*CRX) 0.5 MG TABLET 1 MG PO (20:49)
[2022-08-09 20:50] VITALS: PULSE 91
[2022-08-09] MEDS: traZODone HCL 50 MG TABLET PO (20:50)
[2022-08-09 20:54] LABS: Glucose Point of Care 184 mg/dl (65-105)
[2022-08-10] VITALS: BP 127/62; PULSE 92; RESP 18; TEMP 36.6; O2SAT 93
[2022-08-10 06:05] VITALS: O2SAT 98
[2022-08-10 07:58] LABS: Glucose Point of Care 137 mg/dl (65-105)
[2022-08-10 08:00] VITALS: BP 143/61; PULSE 87; RESP 16; TEMP 35.9; O2SAT 97
[2022-08-10] MEDS: IPRATROPIUM NASAL SPRAY 0.03% 15 ML BOTTLE 2 SPRAY NASAL ×2 (08:37→16:59)
[2022-08-10] MEDS: FLUTICASONE PROPIONATE 0.05% NA SPR 16 GM BTL (*BKC) 2 SPRAY NASAL (08:38)
[2022-08-10] MEDS: DULoxetine HCL 20 MG CAPSULE.DR PO ×2 (08:39→17:00)
[2022-08-10] MEDS: ACETAMINOPHEN 500 MG TABLET PO (08:39)
[2022-08-10 08:40] VITALS: PULSE 87
[2022-08-10] MEDS: carvediloL 6.25 MG TABLET PO ×2 (08:40→20:32)
[2022-08-10] MEDS: DICLOFENAC SODIUM 1% 100 GM GEL (*BKC) 1 APPLIC TOPICAL ×3 (08:40→17:00)
[2022-08-10] MEDS: allopurinoL 100 MG TABLET PO (08:41)
[2022-08-10] MEDS: CYANOCOBALAMIN 1,000 MCG TABLET 1000 MCG PO (08:41)
[2022-08-10] MEDS: FUROSEMIDE 20 MG TABLET PO (08:41)
[2022-08-10] MEDS: APIXABAN 2.5 MG TABLET PO ×2 (08:41→20:38)
[2022-08-10] MEDS: ATORVASTATIN 10 MG TABLET PO (08:42)
[2022-08-10] MEDS: DOCUSATE SODIUM 100 MG CAPSULE PO ×2 (08:42→20:37)
--- NOTE | 2022-08-10 13:33 | PC.NURSE ---
Patient's pressure area on heel is closed and scabbed over. [employer] cleansed with saline and placed clean mepilex to protect heel during continued hospital stay.
[2022-08-10 16:00] VITALS: BP 132/59; PULSE 84; RESP 16; TEMP 35.9; O2SAT 96
[2022-08-10 20:32] VITALS: PULSE 83
[2022-08-10] MEDS: clonazePAM (*CRX) 0.5 MG TABLET 1 MG PO (20:32)
[2022-08-10] MEDS: traZODone HCL 50 MG TABLET PO (20:32)
[2022-08-10 20:49] LABS: Glucose Point of Care 195 mg/dl (65-105)
[2022-08-11 05:38] VITALS: O2SAT 96
--- NOTE | 2022-08-11 06:34 | PC.NURSE ---
Due to computer downtime from approximately 2130 on 08/10/2022 to 0630 on 08/11/2022, charting was completed on hard copy and can be located in the patient's chart.
[2022-08-11 07:41] LABS: Hemoglobin 9.2 g/dL (11.7-13.8); Mean Corpuscular HGB Conc 31.7 g/dL (32.0-36.0); Mean Corpuscular Hemoglobin 29.9 pg (27.0-31.0); Mean Corpuscular Volume 94.2 fL (78.0-102.0); Mean Platelet Volume 10.6 fl (9.2-11.8); Platelet Count Result 410 K/mm3 (150-420); Red Blood Count 3.08 M/mm3 (4.20-5.40); Red Cell Distribution Width 12.6 % (11.6-14.4); White Blood Count 8.7 K/mm3 (4.8-10.8)
[2022-08-11 07:47] LABS: Glucose Point of Care 159 mg/dl (65-105)
[2022-08-11 08:00] VITALS: BP 126/57; PULSE 89; RESP 14; TEMP 36.4; O2SAT 95
[2022-08-11] MEDS: CYANOCOBALAMIN 1,000 MCG TABLET 1000 MCG PO (08:43)
[2022-08-11] MEDS: ACETAMINOPHEN 500 MG TABLET PO ×2 (08:43→20:50)
[2022-08-11] MEDS: DULoxetine HCL 20 MG CAPSULE.DR PO ×2 (08:44→16:42)
[2022-08-11] MEDS: APIXABAN 2.5 MG TABLET PO ×2 (08:44→20:45)
[2022-08-11] MEDS: FUROSEMIDE 20 MG TABLET PO (08:44)
[2022-08-11 08:45] VITALS: PULSE 80
[2022-08-11] MEDS: carvediloL 6.25 MG TABLET PO ×2 (08:45→20:45)
[2022-08-11] MEDS: ATORVASTATIN 10 MG TABLET PO (08:45)
[2022-08-11] MEDS: FLUTICASONE PROPIONATE 0.05% NA SPR 16 GM BTL (*BKC) 2 SPRAY NASAL (08:45)
[2022-08-11] MEDS: IPRATROPIUM NASAL SPRAY 0.03% 15 ML BOTTLE 2 SPRAY NASAL ×2 (08:47→16:42)
[2022-08-11] MEDS: allopurinoL 100 MG TABLET PO (08:47)
[2022-08-11] MEDS: DOCUSATE SODIUM 100 MG CAPSULE PO ×2 (08:48→20:45)
[2022-08-11] MEDS: DICLOFENAC SODIUM 1% 100 GM GEL (*BKC) 1 APPLIC TOPICAL ×3 (08:48→16:42)
[2022-08-11 16:00] VITALS: BP 109/65; PULSE 77; RESP 14; TEMP 36.2; O2SAT 93
[2022-08-11 20:11] LABS: Glucose Point of Care 211 mg/dl (65-105)
[2022-08-11 20:45] VITALS: PULSE 84
[2022-08-11] MEDS: clonazePAM (*CRX) 0.5 MG TABLET 1 MG PO (20:45)
[2022-08-11] MEDS: traZODone HCL 50 MG TABLET PO (20:45)
[2022-08-11 23:16] VITALS: BP 122/62; PULSE 86; RESP 15; TEMP 36.3; O2SAT 96
[2022-08-12 05:02] VITALS: O2SAT 97
[2022-08-12 08:00] VITALS: BP 117/56; PULSE 94; RESP 17; TEMP 36.2; O2SAT 93
[2022-08-12 10:15] VITALS: PULSE 68
[2022-08-12] MEDS: CYANOCOBALAMIN 1,000 MCG TABLET 1000 MCG PO (10:15)
[2022-08-12] MEDS: carvediloL 6.25 MG TABLET PO ×2 (10:15→20:52)
[2022-08-12] MEDS: APIXABAN 2.5 MG TABLET PO ×2 (10:16→20:52)
[2022-08-12] MEDS: IPRATROPIUM NASAL SPRAY 0.03% 15 ML BOTTLE 2 SPRAY NASAL ×2 (10:16→17:34)
[2022-08-12] MEDS: FLUTICASONE PROPIONATE 0.05% NA SPR 16 GM BTL (*BKC) 2 SPRAY NASAL (10:16)
[2022-08-12] MEDS: allopurinoL 100 MG TABLET PO (10:16)
[2022-08-12] MEDS: DOCUSATE SODIUM 100 MG CAPSULE PO ×2 (10:16→20:52)
[2022-08-12] MEDS: FUROSEMIDE 20 MG TABLET PO (10:16)
[2022-08-12] MEDS: DULoxetine HCL 20 MG CAPSULE.DR PO ×2 (10:16→17:32)
[2022-08-12] MEDS: ATORVASTATIN 10 MG TABLET PO (10:16)
[2022-08-12] MEDS: DICLOFENAC SODIUM 1% 100 GM GEL (*BKC) 1 APPLIC TOPICAL ×2 (10:17→17:32)
[2022-08-12] MEDS: ACETAMINOPHEN 500 MG TABLET PO (10:26)
[2022-08-12 16:00] VITALS: BP 131/74; PULSE 84; RESP 15; TEMP 36.2; O2SAT 94
[2022-08-12 20:00] VITALS: PULSE 84; RESP 15; O2SAT 94
[2022-08-12 20:52] VITALS: PULSE 84
[2022-08-12] MEDS: traZODone HCL 50 MG TABLET PO (20:52)
[2022-08-12] MEDS: HYDROcodone/acetaminophen (*CRX) 5-325 MG TABLET 1 TAB PO (20:53)
[2022-08-12] MEDS: clonazePAM (*CRX) 0.5 MG TABLET 1 MG PO (20:54)
[2022-08-13] VITALS (7 sets, daily range): BP systolic 116–129; BP diastolic 52–58; PULSE 70–88; RESP 16–17; TEMP 36.2–36.4; O2SAT 92–97
[2022-08-13] MEDS: FLUTICASONE PROPIONATE 0.05% NA SPR 16 GM BTL (*BKC) 2 SPRAY NASAL (10:02)
[2022-08-13] MEDS: IPRATROPIUM NASAL SPRAY 0.03% 15 ML BOTTLE 2 SPRAY NASAL ×2 (10:02→18:04)
[2022-08-13] MEDS: ACETAMINOPHEN 500 MG TABLET PO (10:03)
[2022-08-13] MEDS: APIXABAN 2.5 MG TABLET PO ×2 (10:03→20:25)
[2022-08-13] MEDS: DOCUSATE SODIUM 100 MG CAPSULE PO ×2 (10:03→20:25)
[2022-08-13] MEDS: allopurinoL 100 MG TABLET PO (10:03)
[2022-08-13] MEDS: DULoxetine HCL 20 MG CAPSULE.DR PO ×2 (10:04→18:04)
[2022-08-13] MEDS: DICLOFENAC SODIUM 1% 100 GM GEL (*BKC) 1 APPLIC TOPICAL (10:04)
[2022-08-13] MEDS: ATORVASTATIN 10 MG TABLET PO (10:04)
[2022-08-13] MEDS: FUROSEMIDE 20 MG TABLET PO (10:04)
[2022-08-13] MEDS: CYANOCOBALAMIN 1,000 MCG TABLET 1000 MCG PO (10:04)
[2022-08-13] MEDS: carvediloL 6.25 MG TABLET PO ×2 (10:04→20:25)
--- NOTE | 2022-08-13 15:21 | PM.EVENT ---
Event Note Event Note Event Note: Peer to peer was performed with [employer] and they upheld their original decision to not allow patient any further days.
[2022-08-13 20:08] LABS: Glucose Point of Care 167 mg/dl (65-105)
[2022-08-13] MEDS: traZODone HCL 50 MG TABLET PO (20:25)
[2022-08-13] MEDS: clonazePAM (*CRX) 0.5 MG TABLET 1 MG PO (20:26)
[2022-08-14 06:01] VITALS: O2SAT 97
[2022-08-14 08:00] VITALS: BP 102/58; PULSE 94; RESP 16; TEMP 36.6; O2SAT 94
[2022-08-14 09:19] VITALS: PULSE 70
[2022-08-14] MEDS: DULoxetine HCL 20 MG CAPSULE.DR PO ×2 (09:19→16:30)
[2022-08-14] MEDS: ATORVASTATIN 10 MG TABLET PO (09:19)
[2022-08-14] MEDS: carvediloL 6.25 MG TABLET PO ×2 (09:19→20:11)
[2022-08-14] MEDS: APIXABAN 2.5 MG TABLET PO ×2 (09:19→20:11)
[2022-08-14] MEDS: DOCUSATE SODIUM 100 MG CAPSULE PO ×2 (09:19→20:11)
[2022-08-14] MEDS: FUROSEMIDE 20 MG TABLET PO (09:20)
[2022-08-14] MEDS: CYANOCOBALAMIN 1,000 MCG TABLET 1000 MCG PO (09:20)
[2022-08-14] MEDS: allopurinoL 100 MG TABLET PO (09:20)
[2022-08-14] MEDS: DICLOFENAC SODIUM 1% 100 GM GEL (*BKC) 1 APPLIC TOPICAL ×3 (09:21→16:31)
[2022-08-14] MEDS: IPRATROPIUM NASAL SPRAY 0.03% 15 ML BOTTLE 2 SPRAY NASAL ×2 (09:21→16:30)
[2022-08-14] MEDS: FLUTICASONE PROPIONATE 0.05% NA SPR 16 GM BTL (*BKC) 2 SPRAY NASAL (09:21)
[2022-08-14 15:58] VITALS: BP 134/72; PULSE 70; RESP 14; TEMP 36.4; O2SAT 94
[2022-08-14 20:00] VITALS: PULSE 87; RESP 14; O2SAT 94
[2022-08-14] MEDS: clonazePAM (*CRX) 0.5 MG TABLET 1 MG PO (20:10)
[2022-08-14 20:11] VITALS: PULSE 87
[2022-08-14] MEDS: traZODone HCL 50 MG TABLET PO (20:11)
[2022-08-14] MEDS: ACETAMINOPHEN 500 MG TABLET PO (20:11)
[2022-08-14 20:15] LABS: Glucose Point of Care 139 mg/dl (65-105)
[2022-08-15] VITALS (7 sets, daily range): BP systolic 108–134; BP diastolic 53–85; PULSE 65–100; RESP 16–17; TEMP 36.1–36.6; O2SAT 95–99
[2022-08-15 07:27] LABS: Glucose Point of Care 141 mg/dl (65-105)
[2022-08-15] MEDS: FUROSEMIDE 20 MG TABLET PO (09:03)
[2022-08-15] MEDS: carvediloL 6.25 MG TABLET PO ×2 (09:03→20:24)
[2022-08-15] MEDS: DOCUSATE SODIUM 100 MG CAPSULE PO ×2 (09:03→20:25)
[2022-08-15] MEDS: CYANOCOBALAMIN 1,000 MCG TABLET 1000 MCG PO (09:03)
[2022-08-15] MEDS: ATORVASTATIN 10 MG TABLET PO (09:03)
[2022-08-15] MEDS: DULoxetine HCL 20 MG CAPSULE.DR PO ×2 (09:03→17:09)
[2022-08-15] MEDS: FLUTICASONE PROPIONATE 0.05% NA SPR 16 GM BTL (*BKC) 2 SPRAY NASAL (09:04)
[2022-08-15] MEDS: allopurinoL 100 MG TABLET PO (09:04)
[2022-08-15] MEDS: DICLOFENAC SODIUM 1% 100 GM GEL (*BKC) 1 APPLIC TOPICAL ×3 (09:04→17:09)
[2022-08-15] MEDS: APIXABAN 2.5 MG TABLET PO ×2 (09:04→20:24)
[2022-08-15] MEDS: IPRATROPIUM NASAL SPRAY 0.03% 15 ML BOTTLE 2 SPRAY NASAL ×2 (09:07→19:07)
[2022-08-15 20:24] LABS: Glucose Point of Care 169 mg/dl (65-105)
[2022-08-15] MEDS: clonazePAM (*CRX) 0.5 MG TABLET 1 MG PO (20:24)
[2022-08-15] MEDS: traZODone HCL 50 MG TABLET PO (20:25)
[2022-08-16] VITALS: BP 119/50; PULSE 100; RESP 16; TEMP 36.1; O2SAT 95
[2022-08-16 07:47] VITALS: BP 123/52; PULSE 77; RESP 14; TEMP 36.6; O2SAT 99
[2022-08-16 07:47] LABS: Glucose Point of Care 144 mg/dl (65-105)
[2022-08-16 08:00] VITALS: PULSE 77; RESP 14; O2SAT 99
[2022-08-16] MEDS: FLUTICASONE PROPIONATE 0.05% NA SPR 16 GM BTL (*BKC) 2 SPRAY NASAL (09:08)
[2022-08-16] MEDS: DICLOFENAC SODIUM 1% 100 GM GEL (*BKC) 1 APPLIC TOPICAL (09:08)
[2022-08-16] MEDS: ATORVASTATIN 10 MG TABLET PO (09:09)
[2022-08-16] MEDS: APIXABAN 2.5 MG TABLET PO (09:09)
[2022-08-16] MEDS: DULoxetine HCL 20 MG CAPSULE.DR PO (09:09)
[2022-08-16] MEDS: CYANOCOBALAMIN 1,000 MCG TABLET 1000 MCG PO (09:09)
[2022-08-16] MEDS: DOCUSATE SODIUM 100 MG CAPSULE PO (09:09)
[2022-08-16] MEDS: allopurinoL 100 MG TABLET PO (09:09)
[2022-08-16 09:10] VITALS: PULSE 70
[2022-08-16] MEDS: ACETAMINOPHEN 500 MG TABLET PO (09:10)
[2022-08-16] MEDS: carvediloL 6.25 MG TABLET PO (09:10)
[2022-08-16] MEDS: IPRATROPIUM NASAL SPRAY 0.03% 15 ML BOTTLE 2 SPRAY NASAL (09:12)
[2022-08-16] MEDS: FUROSEMIDE 20 MG TABLET PO (09:16)
--- NOTE | 2022-08-16 10:26 | PM.DS ---
DS: Admitting Diagnosis Discharge Date 08/16/2022 Admitting Diagnosis rehab, fracture ankle DS: Discharge Diagnosis Discharge Diagnosis (1) UTI (urinary tract infection): Code(s): N39.0 - Urinary tract infection, site not specified Status: Acute Assessment and Plan: Cefidnir completed encourage plenty of fluids continue to monitor for worsening symptoms continue to monitoring for worsening symptoms (2) Nondisplaced bimalleolar fracture of right ankle: Qualifiers: Encounter type: subsequent encounter Fracture healing: with routine healing Fracture type: closed Qualified Code(s): S82.844D - Nondisplaced bimalleolar fracture of right lower leg, subsequent encounter for closed fracture with routine healing Code(s): S82.844A - Nondisplaced bimalleolar fracture of right lower leg, initial encounter for closed fracture Status: Acute Assessment and Plan: WBAT PT/OT evaluate and treat (3) Anxiety: Code(s): F41.9 - Anxiety disorder, unspecified Status: Acute Assessment and Plan: Stable treat prn as needed (4) CKD (chronic kidney disease): Code(s): N18.9 - Chronic kidney disease, unspecified Status: Acute Assessment and Plan: avoid nephrotoxic medication (5) Hypertension: Code(s): I10 - Essential (primary) hypertension Status: Acute Assessment and Plan: continue to monitor blood pressure continue with home medication will adjust accordingly (6) Asthma: Code(s): J45.909 - Unspecified asthma, uncomplicated Status: Acute Assessment and Plan: oxygen as indicated inhaler per home dosage monitor for worsening symptoms (7) Atrial fibrillation, chronic: Code(s): I48.20 - Chronic atrial fibrillation, unspecified Status: Acute Assessment and Plan: stable continue on home medication continue anticoagulation (8) DM2 (diabetes mellitus, type 2): Code(s): E11.9 - Type 2 diabetes mellitus without complications Status: Acute Assessment and Plan: AccuCheck insulin per sliding scale will hold oral antiglycemic DS: Summary Hospital Course Reason for hospitalization: rehab and fracture ankle Hospital Course: 87-year-old female that presented here from [facility] for rehab as she is a fracture ankle she is in a electrical wheelchair. Patient work with physical therapy to improve his tandem. It as she was to be nonweightbearing patient slowly improved and has progressed enough to go back to assisted living. While she was here patient was treated for urinary tract infection her antibiotics were completed and she is continued to remain afebrile no signs and symptoms of any other infections. Patient has been able to take her medications without any difficulties eating and drinking and afebrile. Patient will resume all home medications she will have physical therapy at this is still living he will follow-up with the primary care doctor as well as orthopedist. Time Spent with Patient Time attestation: Total time spent providing and/or coordinating discharge services: Exam Narrative: GENERAL:well appearing, well-nourished, and in no acute distress. HEAD:Normocephalic, atraumatic. EYES: PERRLA a ENT: Nares clear, no rhinorrhea or epistaxis. Mucous membranes moist. NECK: Supple. CHEST: diminished to auscultation. No respiratory distress. HEART: Regular rate and rhythm. Normal peripheral pulses. ABDOMEN: Soft, nontender, nondistended, normal active bowel sounds. EXTREMITIES: decreased range of motion. mild right ankle edema. SKIN: Warm, dry, no rash. NEURO: No focal deficits. Alert and oriented x3. DS: Data Data Completed and Pending Labs on day of discharge: Labs from last 24 hours 08/16/22 08/15/22 07:42 20:22 POC Capillary Glucose 144 H 169 H Discharge Plan Discharge Attending physic
--- NOTE | 2022-08-16 11:37 | PC.NURSE ---
Patient discharged to [facility]. All belongings sent with . Taken to [facility] wheelchair accessible van by wheelchair. Loaded without difficulty. paperwork reviewed with patient and . Discharge paperwork given to hook up driver
--- NOTE | 2022-08-17 14:06 | PC.NURSE ---
Pt states she received and understood her discharge instructions. Pt also states everybody was good .
== END 2022-08-16 11:30 | DRG 560 ==
PROVIDERS: Nurse Practitioner; Nurse Practitioner Family; Admitting Provider Internal Medicine; PCP Internal Medicine Geriatric Medicine; Visit Provider Nurse Practitioner Adult Health
DX: S82.844D Nondisplaced bimalleolar fracture of right lower leg, subsequent encounter for closed fracture with routine healing (principal); I48.20 Chronic atrial fibrillation, unspecified; N39.0 Urinary tract infection, site not specified; I12.9 Hypertensive chronic kidney disease with stage 1 through stage 4 chronic kidney disease, or unspecified chronic kidney disease; J45.909 Unspecified asthma, uncomplicated; N18.9 Chronic kidney disease, unspecified; E11.22 Type 2 diabetes mellitus with diabetic chronic kidney disease; E78.5 Hyperlipidemia, unspecified; F41.9 Anxiety disorder, unspecified; W22.09XD Striking against other stationary object, subsequent encounter; Z96.651 Presence of right artificial knee joint; Z86.73 Personal history of transient ischemic attack (TIA), and cerebral infarction without residual deficits; Z79.01 Long term (current) use of anticoagulants
CPT/HCPCS: 36415; 80048; 82948; 85027; 97110; 97161; 97165; 97530; 97535; A9270